=== PATIENT | female | born 1930 | race Hispanic/Latino ===

== ENCOUNTER 2017-12-06 09:45 | Outpatient (CLI) | payer MEDICARE | END 2017-12-06 09:46 | disposition home or self-care (01) | LOC: BICMAMMO 09:45 | PROVIDERS: ATTEND Obstetrics & Gynecology | DX: Z12.31 Encounter for screening mammogram for malignant neoplasm of breast (principal) | CPT/HCPCS: 77063; 77067 ==

== ENCOUNTER 2018-04-09 13:56 | Outpatient (CLI) | payer MEDICARE ==
--- NOTE | 2018-04-09 17:44 | ULT ---
LEFT BREAST ULTRASOUND: Date: 04/09/18 HISTORY: Palpable area noted by patient's physician. Patient does not report a palpable focus. COMPARISON: None. TECHNIQUE: Targeted sonographic imaging of the left breast is performed at 3 o'clock position. Static images are reviewed. FINDINGS: Static images demonstrate normal fibroglandular tissue. No evidence of architectural distortion or sh adowing. No solid or cystic masses. IMPRESSION: BIRADS 2: Benign Finding(s) RECOMMENDATION: Annual mammogram. POS: [facility]
== END 2018-04-09 13:57 | disposition home or self-care (01) ==
LOC: BICMAMMO 13:56
PROVIDERS: ATTEND Internal Medicine
DX: N60.09 Solitary cyst of unspecified breast (principal)
CPT/HCPCS: 76642; 77065; G0279

== ENCOUNTER 2018-08-14 13:53 | Outpatient (CLI) | payer MEDICARE ==
--- NOTE | 2018-08-14 15:00 | RAD ---
PA AND LATERAL OF THE CHEST: INDICATION: History of dyspnea. COMPARISON: Prior exam dated 12/06/2016. FINDINGS: Chronic lung changes and mild cardiomegaly are stable. No consolidation, pleural effusion, or pneumo thorax is evident. No acute osseous abnormality is evident. IMPRESSION: No acute cardiopulmonary abnormality. Stable chronic obstructive pulmonary disease change and mild c ardiomegaly. POS: [facility]
== END 2018-08-14 13:54 | disposition home or self-care (01) ==
LOC: RAD 13:53
PROVIDERS: ATTEND Internal Medicine Critical Care Medicine
DX: R06.00 Dyspnea, unspecified (principal); J44.9 Chronic obstructive pulmonary disease, unspecified; I51.7 Cardiomegaly
CPT/HCPCS: 71046

== ENCOUNTER 2019-03-24 10:46 | Outpatient (CLI) | payer MEDICARE ==
--- NOTE | 2019-03-24 12:30 | RAD ---
2 VIEW CHEST: Date: 03/24/19 HISTORY: Dyspnea. COMPARISON: 08/14/18. FINDINGS: The lungs appear clear. Heart size upper normal. Vasculature upper normal but stable. Osseous struct ures unremarkable. Prominent pulmonary artery segments are again noted, stable. IMPRESSION: No acute process. POS: [facility]
== END 2019-03-24 10:47 | disposition home or self-care (01) ==
LOC: RAD 10:46
PROVIDERS: ATTEND Internal Medicine Critical Care Medicine
DX: R06.00 Dyspnea, unspecified (principal)
CPT/HCPCS: 71046

== ENCOUNTER 2019-05-06 01:40 | Inpatient (IN) | payer MEDICARE ==
[2019-05-06] MEDS ORDERED: predniSONE 20 MG TAB ONE (02:01)
[2019-05-06 02:32] LABS: #Eosinphils 0.3 thou/uL (0.0-0.7); #Lymphocytes 0.7 thou/uL (1.20-3.40); #Neutrophils 5.8 thou/uL (1.40-6.50); %Basophils 0.2 % (0.0-1.0); %Eosinophils 3.6 % (0.0-10.0); %Lymphocytes 8.5 % (21.0-51.0); %Monocytes 12.4 % (0.0-10.0); %Neutrophils 75.3 % (42.0-75.0); Hemoglobin 12.9 g/dL (12.0-16.0); Mean Corpuscular HGB CONC 32.8 g/dL (32.0-36.0); Mean Corpuscular Hemoglobin 33.2 pg (27.0-31.0); Mean Platelet Volume 8.3 fL (7.4-10.4); Platelet Count 186 thou/uL (130-400); RBC Distribution Width 11.7 % (11.5-14.5); Red Blood Cell (RBC) Count 3.88 mill/uL (4.20-5.40); White Blood Cell (WBC) Count 7.7 thou/uL (4.8-10.8)
[2019-05-06] MEDS ORDERED: Albuterol Sulfate 2.5 mg/3 ml Neb ONE (02:38)
[2019-05-06 02:57] LABS: ALT (SGPT) 13 U/L (8-55); AST (SGOT) 20 U/L (5-34); Albumin 3.8 g/dL (3.4-4.8); Alkaline Phosphatase 76 U/L (40-110); Anion Gap 11 mmol/L (10-20); BUN (Urea Nitrogen) 16 mg/dL (9.8-20.1); Bilirubin, Total 0.3 mg/dL (0.2-1.2); Calc. Creatinine Clearance 0 mL/min (70-130); Calcium 9.3 mg/dL (7.8-10.44); Carbon Dioxide 29 mmol/L (23-31); Chloride 104 mmol/L (98-107); Estimated GFR-MDRD 69; Globulin 2.5 g/dL (2.4-3.5); Glucose 105 mg/dL (83-110); Potassium 3.8 mmol/L (3.5-5.1); Protein, Total 6.3 g/dL (6.0-8.3); Sodium 140 mmol/L (136-145)
[2019-05-06] MEDS ORDERED: Acetaminophen 500 MG TAB ONE (03:40)
[2019-05-06] MEDS ORDERED: hydrALAZINE 20 MG/ML VIAL SLOW IVP PRN (04:10)
[2019-05-06 04:59] VITALS: BMI 24.2
[2019-05-06] MEDS ORDERED: Guaifenesin DM 100-10/5 ML UDCUP PO PRN (05:00)
[2019-05-06] MEDS ORDERED: Acetaminophen 325 MG TAB PO PRN (05:00)
--- NOTE | 2019-05-06 05:03 | HP ---
PRESENTING COMPLAINT: Worsening shortness of breath since the last 5 days. HISTORY OF PRESENT ILLNESS: Ms. Martinez is an 89-year-old female with past medical history of hypertension, COPD, follows with Pulmonary, on home O2 p.r.n. but states she rarely uses it, on b.i.d. MDI, presented because of worsening shortness of breath and wheezing since the last 5 days, much worse over the weekend. She stated her symptoms continued to worsen today. She has used the inhaler with no relief. She stated at home, her O2 saturation was in the 80s before starting home O2 today. In the ER, her O2 saturation had improved to 100%. She states she is still wheezing. She was given DuoNeb. Chest x-ray shows no acute infiltrate. The patient is being admitted for COPD exacerbation. She denies any fever or chills. She denies any chest pain. PAST MEDICAL HISTORY: Significant for hypertension, history of TIAs, history of COPD, and history of asthma. PAST SURGICAL HISTORY: Significant for hysterectomy and tonsillectomy. ALLERGIES: SHE IS ALLERGIC TO IODINE. FAMILY HISTORY: Noncontributory. SOCIAL HISTORY: The patient resides in the community with the family. She denies any tobacco use, but former smoker. She admits to 5 drinks per day use. She is not willing to characterize how much she actually drinks or what type of drink she has, to me today. REVIEW OF SYSTEMS: All systems review x14 were negative. HOME MEDICATIONS: Awaiting for medication list, but includes, 1. Verapamil. 2. Ferrous sulfate. 3. Pravachol. 4. Aspirin. 5. Vitamin B12. 6. Vitamin D. 7. Fiber. 8. Pantoprazole. The patient is unsure of what type of inhaler she uses. PHYSICAL EXAMINATION: CURRENT VITAL SIGNS: Blood pressure of 136/78, pulse of 69, O2 saturation 100% on 2 L, still maintaining 100% when O2 reaches to 1 L, afebrile at 97.9, respiratory rate of 23. GENERAL: Elderly female, lying in bed, mildly dyspneic, but on nasal cannula O2. HEENT: Head is atraumatic and normocephalic. Pupils are equal and reactive to light. NECK: No JVD. RESPIRATORY: Good air entry bilaterally with minimal bibasilar crepitations. No appreciable wheezing noted. CARDIOVASCULAR: S1, S2. Rate and rhythm regular. ABDOMEN: Full, soft, nontender. Bowel sounds positive. EXTREMITIES: No calf tenderness. No pedal edema. LABORATORY DATA: WBC 7.6, hemoglobin 13, hematocrit 39, platelets 186, neutrophils 75%. Sodium 140, potassium 3.8. AST and alkaline phosphatase normal. Troponin less than 0.01. Chest x-ray show hyperinflated lung. No acute Infiltrates. ProBNP of 47. IMPRESSION: 1. Chronic obstructive pulmonary disease exacerbation. 2. Hypertension; controlled. PLAN: We will admit patient to medical floor for observation. We will manage the patient for; 1. COPD exacerbation; continue O2 with slow tapering as tolerated. We will do DuoNeb q.6 schedule. We will start the patient on prednisone 40 b.i.d. for now. We will obtain CT of the chest since degree of hypoxia does not seem to correlate with the patient's respiratory findings on examination. We will rule out occult or subtle pneumonia. If CT negative and improving oxygenation, plan for discharge in a.m. 2. Hypertension; continue verapamil. 3. Deep venous thrombosis prophylaxis; subcutaneous Lovenox. 4. Disposition; the patient wishes to be full. 5. Advance directives discussed with the patient and daughter, she wishes to be full code. Total time spent in evaluation of the patient and discussion, greater than 60 minutes. Job ID: [id number]
[2019-05-06] MEDS ORDERED: Bacteriostatic Water 30 ML VIAL FS PRN (05:09)
[2019-05-06] MEDS: cefTRIAXone\\ROCEPHIN 1 GM in Sodium Chloride 0.9% 100 ML IVPB SCH (05:26)
[2019-05-06] MEDS: Sodium Chloride 0.9% 1,000 ML IV SCH (05:26)
[2019-05-06] MEDS: methylPREDNISolone Sod Succ 40 MG VIAL IVP SCH ×4 (05:27→23:43)
[2019-05-06] MEDS: Arformoterol 15 MCG/2 ML NEB NEB SCH ×2 (06:23→19:26)
--- NOTE | 2019-05-06 07:49 | RAD ---
XR Chest 1 View Portable History: Hypoxia Comparison: Radiograph March 24, 2019 Findings: There is a chronic right middle lobe opacity with bronchiectasis. Mild blunting bilateral c ostophrenic sulcus likely due to right middle lobe volume loss. Bilateral rotator cuff arthropathy. Heart size mildly enlarged. Mild ectasia of the aorta with calcif ications. Impression: Chronic findings. No acute intrathoracic abnormality.
[2019-05-06] MEDS ORDERED: predniSONE 20 MG TAB PO SCH (08:00)
[2019-05-06] MEDS: Enoxaparin Sodium 40 MG/0.4 ML SYRINGE SC SCH (08:11)
[2019-05-06] MEDS: Famotidine 20 MG TAB PO SCH (08:11)
--- NOTE | 2019-05-06 08:12 | CT ---
PRELIMINARY REPORT/[facility]/EMERGENCY AFTER HOURS PROCEDURE: PROCEDURE INFORMATION: Exam: CT Chest Without Contrast Exam date and time: 05/06/2019 4:15 AM Clinical history: 89 years old, female; Dyspnea and shortness of breath; Patient HX: Er 2. 89yo femal e with pmh of copd and asthma presents with SOB that started today. Has o2 at home but rarely uses it . Spo2 at home was 80% on ra so she put on o2. Follows with Dr puente. Has been compliant with medications. Endorses increase sputum production with change in color to tyson and wheezing. TECHNIQUE: Imaging protocol: Computed tomography of the chest without contrast. COMPARISON: No relevant prior studies available. FINDINGS: Lungs: No consolidation. No masses. Pleural space: No pneumothorax. No pleural effusion. Heart: No cardiomegaly. No pericardial effusion. Aorta: No aortic aneurysm. Lymph nodes: Carotid arteries calcifications are moderate. Mitral valve calcifications are moderate. No enlarged lymph nodes. Bones/joints: Advanced degenerative changes in the thoracic spine. No acute fracture. Soft tissues: Unremarkable. IMPRESSION: No consolidation to suspect pneumonia. Thank you for allowing us to participate in the care of your patient. Dictated and Authenticated by: Basia Anglin MD 05/06/2019 4:37 AM Central Time ([place] & [place]) FINAL REPORT CHEST CT WITHOUT CONTRAT: HISTORY: Hypoxia. COMPARISON: None. FINDINGS/IMPRESSION: This report is in agreement with the preliminary report by Steven. Limited evaluation of the mediastinu m. No mediastinal abnormalities. Atherosclerosis of aorta. Coronary artery calcifications. Calcificat ion mitral annulus. Upper solid organs are unremarkable. Left parapelvic cysts are suspected. Emphysematous changes. No masses or consolidation. No pleural effusion or pneumothorax. Minimal scar and atelectasis is noted. POS: [facility]
--- NOTE | 2019-05-06 16:29 | CON ---
DATE OF CONSULTATION: 05/06/2019 This encompassed 50 minutes of time, of that time, greater than 50% was spent with the patient and/or the patient's unit in the hospital. REASON FOR CONSULTATION: Shortness of breath. HISTORY OF PRESENT ILLNESS: The patient is an 89-year-old whom I have known for a number of years. She has COPD and infrequently comes to the office with exacerbation of symptoms. Over the weekend, she developed low-grade fever, productive phlegm, and hypoxemia. She was brought to the emergency room by her family. She was subsequently admitted. She says she feels better now and is wondering when she can go home. PAST MEDICAL HISTORY: 1. COPD/asthma. 2. Hypertension. 3. Transient ischemic attack. PAST SURGICAL HISTORY: 1. Hysterectomy. 2. Tonsillectomy. ALLERGIES: IODINE. FAMILY MEDICAL HISTORY: Unremarkable. SOCIAL HISTORY: Former smoker, quit some time ago. Drinks one drink per day. REVIEW OF SYSTEMS: Twelve-point review of systems is otherwise negative. MEDICATIONS: Prior to admission; 1. Verapamil. 2. Iron sulfate. 3. Pravachol. 4. Aspirin. 5. Vitamin B12. 6. Vitamin D. 7. Pantoprazole. 8. I believe she is on Symbicort. 9. ProAir. PHYSICAL EXAMINATION: VITAL SIGNS: Temperature of 98.0, pulse 91, respirations 20, O2 saturation 97%, and blood pressure 158/77. GENERAL: She is awake, alert, in no distress. HEENT: Unremarkable. NECK: No adenopathy, JVD, or bruits. LUNGS: She has coarse breath sounds on the right side, fairly clear on the left. CARDIAC: S1 and S2. Regular. ABDOMEN: Soft, nontender, and nondistended. EXTREMITIES: No clubbing, cyanosis, or edema. LABORATORY DATA: White blood cell count 7.7, hematocrit 39.2, and platelet count 186. Sodium 140, potassium 3.8, chloride 104, CO2 of 29, BUN 16, creatinine 0.7, and glucose 105. IMAGING: Her chest x-ray and CT scan show no infiltrates. ASSESSMENT: Chronic obstructive pulmonary disease with exacerbation. RECOMMENDATIONS: The current treatment with antibiotics, steroids, and nebulization therapy is perfect. She does not need both IV Solu-Medrol and prednisone, so I will stop the oral prednisone for the time being. It would be anticipated that she can go home in a day or two. Job ID: [id number]
[2019-05-06] MEDS ORDERED: hydrALAZINE 10 MG TAB PO SCH (21:00)
[2019-05-06] MEDS ORDERED: Ferrous Sulfate 325 MG TAB PO SCH (23:15)
[2019-05-06] MEDS ORDERED: Docusate 100 MG CAP PO SCH (23:45)
[2019-05-07] MEDS ORDERED: Melatonin 3 MG TAB PO PRN (00:04)
[2019-05-07] MEDS ORDERED: Simvastatin 5 MG TAB PO SCH (00:15)
[2019-05-07] MEDS: Melatonin 3 MG TAB PO SCH ×2 (00:17→02:42)
[2019-05-07] MEDS: Cepastat Lozenges 1 LOZ PO PRN ×2 (00:17→19:41)
[2019-05-07] MEDS: HYDROcodone/Acetaminophen 5/325 mg Tablet PO PRN (01:11)
[2019-05-07] MEDS: Labetalol HCl 100 MG/20 ML VIAL SLOW IVP PRN (01:24)
[2019-05-07] MEDS ORDERED: Furosemide 40 MG/4 ML VIAL SLOW IVP SCH (01:30)
[2019-05-07] MEDS ORDERED: ALPRAZolam 0.5 MG TAB PO SCH ×2 (01:30→22:30)
[2019-05-07] MEDS: Sodium Chloride 0.9% 1,000 ML IV SCH ×2 (01:47→17:02)
[2019-05-07 02:00] LABS: Troponin I Less than 0.010 ng/mL (< 0.028)
[2019-05-07] MEDS: cefTRIAXone\\ROCEPHIN 1 GM in Sodium Chloride 0.9% 100 ML IVPB SCH (04:17)
[2019-05-07] MEDS: methylPREDNISolone Sod Succ 40 MG VIAL IVP SCH ×3 (05:13→17:48)
[2019-05-07 06:20] LABS: Band 6 % (5-11); Hemoglobin 12.2 g/dL (12.0-16.0); Lymphocytes 1 % (21-51); MDiff Complete? YES; Mean Corpuscular HGB CONC 33.5 g/dL (32.0-36.0); Mean Corpuscular Hemoglobin 33.8 pg (27.0-31.0); Mean Platelet Volume 8.5 fL (7.4-10.4); Monocytes 3 % (0-10); Neutrophil 90 % (42-75); Platelet Count 185 thou/uL (130-400); Platelet Morphology Comment Appears Adequate; RBC Distribution Width 11.6 % (11.5-14.5); RBC Morphology Normal; Red Blood Cell (RBC) Count 3.61 mill/uL (4.20-5.40); White Blood Cell (WBC) Count 11.3 thou/uL (4.8-10.8)
[2019-05-07 06:23] LABS: Anion Gap 12 mmol/L (10-20); BUN (Urea Nitrogen) 16 mg/dL (9.8-20.1); Calc. Creatinine Clearance 51 mL/min (70-130); Calcium 8.9 mg/dL (7.8-10.44); Carbon Dioxide 28 mmol/L (23-31); Chloride 102 mmol/L (98-107); Estimated GFR-MDRD 82; Glucose 133 mg/dL (83-110); Potassium 3.8 mmol/L (3.5-5.1); Sodium 138 mmol/L (136-145)
[2019-05-07 06:29] LABS: Troponin I Less than 0.010 ng/mL (< 0.028)
[2019-05-07] MEDS: Arformoterol 15 MCG/2 ML NEB NEB SCH ×2 (07:45→18:22)
[2019-05-07] MEDS: Polyethylene Glycol 3350 17 GM Packet PO SCH (08:58)
[2019-05-07] MEDS: Famotidine 20 MG TAB PO SCH (08:59)
[2019-05-07] MEDS: Enoxaparin Sodium 40 MG/0.4 ML SYRINGE SC SCH (09:00)
[2019-05-07] MEDS: Ferrous Sulfate 325 MG TAB PO SCH ×2 (09:00→20:40)
[2019-05-07] MEDS ORDERED: Docusate 100 MG CAP PO SCH (09:00)
--- NOTE | 2019-05-07 09:33 | PRG ---
DATE OF SERVICE: 05/07/2019 SUBJECTIVE: The patient had problems with chest pain last night and apparently required some [place] to relieve that pain. She feels short of breath this morning. OBJECTIVE: VITAL SIGNS: Temperature 97.6, pulse 99, respirations 22, O2 saturation 93% on 2 L, blood pressure 163/84. HEENT: Unremarkable. NECK: No adenopathy or JVD. LUNGS: Diffuse mild intermittent wheezing. CARDIAC: S1, S2. Regular. ABDOMEN: Soft. EXTREMITIES: No edema. LABORATORY DATA: White blood cell count 11.3, hematocrit 36.3, platelet count 185. Sodium 138, potassium 3.8, chloride 102, CO2 of 28, BUN 16, creatinine 0.7, glucose 133. ASSESSMENT: 1. Chronic obstructive pulmonary disease with exacerbation. 2. Costochondritis. 3. Advanced age. PLAN: Continue the IV steroids, nebulization treatment, and antibiotics. Job ID: [id number]
[2019-05-07] MEDS ORDERED: hydrALAZINE 10 MG TAB PO SCH (13:15)
--- NOTE | 2019-05-07 18:18 | PDOC.HOSPP ---
- Subjective Encounter Date: 05/07/19 Encounter Time: 10:20 Subjective: Pt seen for followup re: acute on chronic hypoxic respiratory failure. Feels better at this time, but had chest discomfort last night, relieved with pain medication. - Objective Vital Signs & Weight: Vital Signs (12 hours) Temp Pulse Resp BP BP Pulse Ox 05/07/19 16:00 98.4 F 92 22 H 145/76 H 92 L 05/07/19 14:14 88 22 H 05/07/19 13:15 91 151/79 H 05/07/19 11:32 97.8 F 91 20 150/76 H 94 L 05/07/19 08:00 97.6 F 99 22 H 163/84 H 94 L 05/07/19 07:43 92 22 H Weight Admit Weight 123 lb Weight 123 lb 14.4 oz I&O: 05/06/19 05/07/19 05/08/19 06:59 06:59 06:59 Intake Total 780 Output Total 500 Balance 280 Result Diagrams: 05/07/19 05:27 05/07/19 05:27 Additional Labs: Labs and MARs reviewed by ct Hospitalist ROS - Review of Systems Constitutional: denies: fever, chills, sweats, weakness, malaise Respiratory: reports: cough, dry, SOB with excertion. denies: shortness of breath, hemoptysis, pleuritic pain, sputum, wheezing - Medication Medications: Active Medications Generic Name Dose Route Start Last Admin Trade Name Freq PRN Reason Stop Dose Admin Acetaminophen 650 mg 05/06/19 05:00 05/07/19 00:02 Tylenol PO 650 mg Q4H PRN Administration Headache/Fever/Mild Pain (1-3) Hydrocodone Bitart/Acetaminophen 1 tab 05/06/19 05:00 05/07/19 01:11 [place] 5/325 PO 1 tab Q4H PRN Administration Moderate Pain (4-6) Albuterol/Ipratropium 3 ml 05/06/19 07:00 05/07/19 14:14 Duoneb NEB 3 ml [id number] SARAH Administration Arformoterol Tartrate 15 mcg 05/06/19 06:30 05/07/19 07:45 Brovana NEB 15 mcg BID-RT SARAH Administration Cholecalciferol 1,000 units 05/07/19 09:00 05/07/19 08:59 Vitamin D3 PO 1,000 units DAILY SARAH Administration Enoxaparin Sodium 40 mg 05/06/19 09:00 05/07/19 09:00 Lovenox SC 40 mg 0900 SARAH Administration Famotidine 20 mg 05/06/19 09:00 05/07/19 08:59 Pepcid PO 20 mg DAILY SARAH Administration Ferrous Sulfate 325 mg 05/07/19 09:00 05/07/19 09:00 Feosol PO 325 mg BID SARAH Administration Ferrous Sulfate 325 mg 05/06/19 23:15 05/06/19 23:43 Feosol PO 05/07/19 23:16 325 mg NOW SARAH Administration Guaifenesin/Dextromethorphan 15 ml 05/06/19 05:00 05/07/19 00:01 Robitussin Dm PO 15 ml Q4H PRN Administration Cough Ceftriaxone Sodium 1 gm/ 100 mls @ 200 mls/hr 05/06/19 05:00 05/07/19 04:17 Sodium Chloride IVPB 100 mls Q24HR SARAH Administration Sodium Chloride 1,000 mls @ 50 mls/hr 05/06/19 05:00 05/07/19 17:02 Normal Saline 0.9% IV 1,000 mls .Q20H SARAH Administration Labetalol HCl 20 mg 05/07/19 01:18 05/07/19 01:24 Normodyne SLOW IVP 20 mg Q8H PRN Administration SBP GREATER THAN 160 Methylprednisolone Sodium Succinate 40 mg 05/06/19 06:00 05/07/19 17:48 Solu-Medrol IVP 40 mg Q6HR SARAH Administration Polyethylene Glycol 17 gm 05/07/19 09:00 05/07/19 08:58 Miralax PO 17 gm DAILY SARAH Administration Sodium Chloride 10 ml 05/06/19 21:00 05/07/19 09:00 Flush - Normal Saline IVF 10 ml Q12HR SARAH Administration Throat Lozenges 1 patricia 05/06/19 23:07 05/07/19 00:17 Cepastat Lozenges PO 1 patricia Q2H PRN Administration Sore Throat - Exam General Appearance: NAD Eye: anicteric sclera ENT: moist mucosa Neck: supple Heart: RRR Respiratory: wheezes Gastrointestinal: soft, non-tender Extremities: no clubbing Psychiatric: normal affect, normal behavior Hosp A/P (1) Acute on chronic respiratory failure with hypoxia Code(s): J96.21 - ACUTE AND CHRONIC RESPIRATORY FAILURE WITH HYPOXIA Status: Acute (2) COPD exacerbation Code(s): J44.1 - CHRONIC OBSTRUCTIVE PULMONARY DISEASE W (ACUTE) EXACERBATION Status: Acute (3) Hx TIA/stroke w/o resid Code(s): Z86.73 - PRSNL HX OF TIA (TIA), AND CEREB INFRC W/O RESID DEFICITS Status: Chronic (4) Costochondritis Code(s): M94.0 - CHONDROCOSTAL JUNCTION SYNDROME [TIETZE] Status: Resolved - Plan continue antibiotics, respiratory therapy, out of bed/ambulate Continue oxygen, steroids, bronchodilators and antibiotics. Continue aspirin and statin for h/o TIAs.
[2019-05-07] MEDS: hydrALAZINE 10 MG TAB PO SCH (20:37)
[2019-05-07] MEDS: Simvastatin 5 MG TAB PO SCH (20:38)
[2019-05-07] MEDS: Docusate 100 MG CAP PO SCH (20:38)
[2019-05-08] MEDS: methylPREDNISolone Sod Succ 40 MG VIAL IVP SCH ×4 (01:07→17:28)
[2019-05-08] MEDS: cefTRIAXone\\ROCEPHIN 1 GM in Sodium Chloride 0.9% 100 ML IVPB SCH (05:05)
[2019-05-08] MEDS: Ferrous Sulfate 325 MG TAB PO SCH ×2 (08:10→20:15)
[2019-05-08] MEDS: Famotidine 20 MG TAB PO SCH (08:10)
[2019-05-08] MEDS: Docusate 100 MG CAP PO SCH ×2 (08:10→20:16)
[2019-05-08] MEDS: Polyethylene Glycol 3350 17 GM Packet PO SCH (08:11)
[2019-05-08] MEDS: hydrALAZINE 10 MG TAB PO SCH ×2 (08:12→20:17)
[2019-05-08] MEDS: Enoxaparin Sodium 40 MG/0.4 ML SYRINGE SC SCH (08:13)
[2019-05-08] MEDS: Arformoterol 15 MCG/2 ML NEB NEB SCH ×2 (08:22→18:05)
--- NOTE | 2019-05-08 08:50 | PRG ---
DATE OF SERVICE: 05/08/2019 SUBJECTIVE: She continues to struggle with bronchitic symptoms. OBJECTIVE: VITAL SIGNS: Temperature is 97.7, pulse 80, respirations 20, O2 saturation 93% on 2 L, and blood pressure 171/74. HEENT: Unremarkable. NECK: She has upper airway noises radiating down to her lungs. LUNGS: Coarse rhonchi. CARDIAC: S1, S2. Regular. ABDOMEN: Soft. EXTREMITIES: No edema. LABORATORY DATA: No new labs were done today. ASSESSMENT: Chronic obstructive pulmonary disease/bronchitis with exacerbation. PLAN: It is going to take some time for her to improve. I would continue with the steroids, nebulization therapy, and antibiotics. Job ID: [id number]
--- NOTE | 2019-05-08 11:47 | PDOC.HOSPP ---
- Subjective Encounter Date: 05/08/19 Encounter Time: 09:40 Subjective: Pt seen for followup re: acute on chronic hypoxic respiratory failure. Feels better now, had difficulty breathing earlier. - Objective Vital Signs & Weight: Vital Signs (12 hours) Temp Pulse Resp BP BP BP Pulse Ox 05/08/19 11:02 95 16 96 05/08/19 08:24 92 22 H 92 L 05/08/19 08:22 92 22 H 92 L 05/08/19 08:12 88 171/74 H 05/08/19 08:00 97.7 F 80 20 171/74 H 94 L 05/08/19 04:05 97.6 F 82 14 151/77 H 94 L 05/08/19 00:37 97.4 F L 99 18 150/75 H 96 05/08/19 00:00 97.4 F L 99 20 163/81 H 96 Weight Admit Weight 123 lb Weight 123 lb 14.4 oz I&O: 05/07/19 05/08/19 05/09/19 06:59 06:59 06:59 Intake Total 780 850 Output Total 500 Balance 280 850 Result Diagrams: 05/07/19 05:27 05/07/19 05:27 Additional Labs: Labs and MARs reviewed by ct Hospitalist ROS - Review of Systems Respiratory: reports: cough, SOB with excertion Cardiovascular: denies: chest pain, palpitations, orthopnea, paroxysmal noc. dyspnea, edema, light headedness - Medication Medications: Active Medications Generic Name Dose Route Start Last Admin Trade Name Freq PRN Reason Stop Dose Admin Acetaminophen 650 mg 05/06/19 05:00 05/07/19 00:02 Tylenol PO 650 mg Q4H PRN Administration Headache/Fever/Mild Pain (1-3) Hydrocodone Bitart/Acetaminophen 1 tab 05/06/19 05:00 05/07/19 01:11 [place] 5/325 PO 1 tab Q4H PRN Administration Moderate Pain (4-6) Albuterol/Ipratropium 3 ml 05/08/19 10:30 05/08/19 11:02 Duoneb EZPAP 3 ml [id number] SARAH Administration Arformoterol Tartrate 15 mcg 05/06/19 06:30 05/08/19 08:22 Brovana NEB 15 mcg BID-RT SARAH Administration Cholecalciferol 1,000 units 05/07/19 09:00 05/08/19 08:10 Vitamin D3 PO 1,000 units DAILY SARAH Administration Docusate Sodium 100 mg 05/07/19 21:00 05/08/19 08:10 Colace PO 100 mg BID SARAH Administration Enoxaparin Sodium 40 mg 05/06/19 09:00 05/08/19 08:13 Lovenox SC 40 mg 0900 SARAH Administration Famotidine 20 mg 05/06/19 09:00 05/08/19 08:10 Pepcid PO 20 mg DAILY SARAH Administration Ferrous Sulfate 325 mg 05/07/19 09:00 05/08/19 08:10 Feosol PO 325 mg BID SARAH Administration Guaifenesin/Dextromethorphan 15 ml 05/06/19 05:00 05/07/19 00:01 Robitussin Dm PO 15 ml Q4H PRN Administration Cough Hydralazine HCl 40 mg 05/07/19 21:00 05/08/19 08:12 Apresoline PO 40 mg BID SARAH Administration Ceftriaxone Sodium 1 gm/ 100 mls @ 200 mls/hr 05/06/19 05:00 05/08/19 05:05 Sodium Chloride IVPB 100 mls Q24HR SARAH Administration Sodium Chloride 1,000 mls @ 50 mls/hr 05/06/19 05:00 05/07/19 17:02 Normal Saline 0.9% IV 1,000 mls .Q20H SARAH Administration Labetalol HCl 20 mg 05/07/19 01:18 05/07/19 01:24 Normodyne SLOW IVP 20 mg Q8H PRN Administration SBP GREATER THAN 160 Methylprednisolone Sodium Succinate 40 mg 05/06/19 06:00 05/08/19 11:36 Solu-Medrol IVP 40 mg Q6HR SARAH Administration Polyethylene Glycol 17 gm 05/07/19 09:00 05/08/19 08:11 Miralax PO 17 gm DAILY SARAH Administration Simvastatin 10 mg 05/07/19 21:00 05/07/19 20:38 Zocor PO 10 mg HS SARAH Administration Sodium Chloride 10 ml 05/06/19 21:00 05/08/19 08:28 Flush - Normal Saline IVF 10 ml Q12HR SARAH Administration Throat Lozenges 1 patricia 05/06/19 23:07 05/07/19 19:41 Cepastat Lozenges PO 1 patricia Q2H PRN Administration Sore Throat Verapamil HCl 240 mg 05/07/19 21:00 05/08/19 08:28 Calan Sr PO 240 mg BID SARAH Administration - Exam General Appearance: NAD Eye: anicteric sclera ENT: no oropharyngeal lesions, moist mucosa Neck: supple, no thyromegaly Heart: RRR Respiratory: CTAB Respiratory - other findings: Biminished air entry at bases Extremities: no clubbing Neurological: no weakness Psychiatric: normal affect, normal behavior Hosp A/P (1) Acute on chronic respiratory failure with hypoxia Code(s): J96.21 - ACUTE AND CHRONIC RESPIRATORY FAILURE WITH HYPOXIA Status: Acute (2) COPD exacerbation Code(s): J44.1 - CHRONIC OBSTRUCTIVE PULMONARY DISEASE W (ACUTE) EXACERBATION Status: Acute (3) Hx TIA/stroke w/o resid Code(s): Z86.73 - PRSNL HX OF TIA (TIA), AND CEREB INFRC W/O RESID DEFICITS Status: Chronic (4) Costochondritis Code(s): M94.0 - CHONDROCOSTAL JUNCTION SYNDROME [TIETZE] Status: Resolved - Plan continue antibiotics, respiratory therapy, out of bed/ambulate Pt slowly improving with oxygen, steroids, bronchodilators and antibiotics. Continue aspirin and statin.
[2019-05-08] MEDS: Labetalol HCl 100 MG/20 ML VIAL SLOW IVP PRN (17:26)
[2019-05-08] MEDS: Bisacodyl 10 MG SUPP PR PRN (17:26)
[2019-05-08] MEDS: Cepastat Lozenges 1 LOZ PO PRN ×2 (19:25→22:45)
[2019-05-08] MEDS: ALPRAZolam 0.5 MG TAB PO SCH (20:16)
[2019-05-08] MEDS: Simvastatin 5 MG TAB PO SCH (20:16)
--- NOTE | 2019-05-08 20:19 | RAD ---
EXAM: Chest one view: HISTORY: Tachypnea COMPARISON: 05/06/2019 FINDINGS: Minimal stable increased markings bilaterally. Heart size: Within normal limits. Lungs: Clear of acute process. No evidence for confluent pneumonia, pleural effusion, acute edema, or pneumothorax, or other signifi cant acute process. IMPRESSION: No significant acute intrathoracic disease. Atherosclerosis of the aorta with ectasia. Stable exam.
[2019-05-08 20:34] LABS: #Eosinphils 0.1 thou/uL (0.0-0.7); #Lymphocytes 0.5 thou/uL (1.20-3.40); #Monocytes 0.6 thou/uL (0.11-0.59); #Neutrophils 12.8 thou/uL (1.40-6.50); %Eosinophils 0.7 % (0.0-10.0); %Lymphocytes 3.3 % (21.0-51.0); %Monocytes 4.5 % (0.0-10.0); %Neutrophils 91.4 % (42.0-75.0); Hemoglobin 12.7 g/dL (12.0-16.0); Mean Corpuscular HGB CONC 32.2 g/dL (32.0-36.0); Mean Corpuscular Hemoglobin 32.9 pg (27.0-31.0); Mean Platelet Volume 8.1 fL (7.4-10.4); Platelet Count 205 thou/uL (130-400); RBC Distribution Width 11.7 % (11.5-14.5); Red Blood Cell (RBC) Count 3.85 mill/uL (4.20-5.40)
[2019-05-08 20:46] LABS: Lactic Acid 2.1 mmol/L (0.5-2.2)
[2019-05-08 20:50] LABS: Anion Gap 10 mmol/L (10-20); BUN (Urea Nitrogen) 21 mg/dL (9.8-20.1); Calc. Creatinine Clearance 49 mL/min (70-130); Carbon Dioxide 30 mmol/L (23-31); Chloride 106 mmol/L (98-107); Estimated GFR-MDRD 78; Glucose 108 mg/dL (83-110); Magnesium 2.4 mg/dL (1.6-2.6); Potassium 4.2 mmol/L (3.5-5.1); Sodium 142 mmol/L (136-145)
[2019-05-09] MEDS: methylPREDNISolone Sod Succ 40 MG VIAL IVP SCH ×5 (00:06→20:47)
[2019-05-09] MEDS: Sodium Chloride 0.9% 1,000 ML IV SCH (00:07)
[2019-05-09] MEDS: cefTRIAXone\\ROCEPHIN 1 GM in Sodium Chloride 0.9% 100 ML IVPB SCH (05:35)
[2019-05-09 06:06] LABS: #Eosinphils 0.1 thou/uL (0.0-0.7); #Lymphocytes 0.5 thou/uL (1.20-3.40); #Monocytes 0.5 thou/uL (0.11-0.59); #Neutrophils 12.2 thou/uL (1.40-6.50); %Basophils 0.1 % (0.0-1.0); %Eosinophils 0.4 % (0.0-10.0); %Monocytes 3.7 % (0.0-10.0); %Neutrophils 91.8 % (42.0-75.0); Hemoglobin 12.6 g/dL (12.0-16.0); Mean Corpuscular HGB CONC 32.3 g/dL (32.0-36.0); Mean Corpuscular Hemoglobin 33.1 pg (27.0-31.0); Mean Platelet Volume 8.2 fL (7.4-10.4); Platelet Count 202 thou/uL (130-400); RBC Distribution Width 11.7 % (11.5-14.5); Red Blood Cell (RBC) Count 3.81 mill/uL (4.20-5.40); White Blood Cell (WBC) Count 13.3 thou/uL (4.8-10.8)
[2019-05-09] MEDS: Arformoterol 15 MCG/2 ML NEB NEB SCH ×2 (06:22→19:20)
[2019-05-09 06:26] LABS: Anion Gap 10 mmol/L (10-20); BUN (Urea Nitrogen) 23 mg/dL (9.8-20.1); Calc. Creatinine Clearance 51 mL/min (70-130); Carbon Dioxide 30 mmol/L (23-31); Chloride 104 mmol/L (98-107); Estimated GFR-MDRD 82; Glucose 135 mg/dL (83-110); Sodium 140 mmol/L (136-145)
[2019-05-09] MEDS: hydrALAZINE 10 MG TAB PO SCH (08:23)
[2019-05-09] MEDS: Ferrous Sulfate 325 MG TAB PO SCH ×2 (08:24→20:55)
[2019-05-09] MEDS: Famotidine 20 MG TAB PO SCH (08:24)
[2019-05-09] MEDS: Docusate 100 MG CAP PO SCH ×2 (08:24→20:46)
[2019-05-09] MEDS: Cepastat Lozenges 1 LOZ PO PRN ×2 (08:24→13:09)
[2019-05-09] MEDS: Enoxaparin Sodium 40 MG/0.4 ML SYRINGE SC SCH (08:25)
--- NOTE | 2019-05-09 08:48 | PRG ---
DATE OF SERVICE: 05/09/2019 SUBJECTIVE: The patient is still fairly miserable from her wheezing and congestion. She says her mouth is becoming too dry with current breathing treatments and she also feels like her heart is racing. OBJECTIVE: VITAL SIGNS: Her temperature is 97.6, pulse 83, respirations 17, O2 saturation 97%, and blood pressure 163/84. HEENT: Unremarkable. NECK: No adenopathy or JVD. LUNGS: Actually much clear than yesterday. CARDIAC: S1 and S2 regular. ABDOMEN: Soft. EXTREMITIES: No edema. ASSESSMENT: Chronic obstructive pulmonary disease with exacerbation. PLAN: I will go ahead and switch her DuoNeb to Xopenex to see if this will have less effect on her heart. I will discontinue the anticholinergic to see if this will help her with the dryness. I will add some nasal saline spray. Additionally, I will start her on Singulair. She is not ready to go home yet. Job ID: [id number]
[2019-05-09] MEDS: Polyethylene Glycol 3350 17 GM Packet PO SCH (09:38)
[2019-05-09] MEDS: Labetalol HCl 100 MG/20 ML VIAL SLOW IVP PRN (10:06)
[2019-05-09] MEDS ORDERED: Enalaprilat Dihydrate 1.25 MG/ML VIAL SLOW IVP PRN (12:47)
[2019-05-09] MEDS ORDERED: hydrALAZINE 25 MG TAB PO SCH (13:00)
[2019-05-09] MEDS: Sodium Chloride 0.65% Nasal 44 ML BOT EA NARE SCH ×3 (13:08→21:06)
[2019-05-09] MEDS: Bisacodyl 10 MG SUPP PR PRN (15:34)
[2019-05-09] MEDS: Levalbuterol HCl 0.63 MG/3 ML NEB NEB SCH ×3 (16:27→23:18)
--- NOTE | 2019-05-09 18:00 | PDOC.HOSPP ---
- Subjective Encounter Date: 05/09/19 Subjective: Pt seen for followup re: acute on chronic hypoxic espiratory failure. Feels slightly better. - Objective Vital Signs & Weight: Vital Signs (12 hours) Temp Pulse Resp BP BP Pulse Ox 05/09/19 16:27 78 16 05/09/19 16:12 97.8 F 78 19 158/74 H 95 05/09/19 13:07 69 170/72 H 05/09/19 12:02 98 F 69 16 170/72 H 97 05/09/19 10:06 83 178/84 H 05/09/19 08:23 83 163/84 H 05/09/19 08:00 94 L 05/09/19 07:55 97.6 F 83 17 163/84 H 97 05/09/19 06:26 100 05/09/19 06:22 83 20 Weight Admit Weight 123 lb Weight 123 lb 14.4 oz I&O: 05/08/19 05/09/19 05/10/19 06:59 06:59 06:59 Intake Total 850 Balance 850 Result Diagrams: 05/09/19 05:41 05/09/19 05:41 Additional Labs: Labs and MARs reviewed by ne Hospitalist ROS - Review of Systems Cardiovascular: denies: chest pain, palpitations, orthopnea, paroxysmal noc. dyspnea, edema, light headedness Gastrointestinal: denies: nausea, vomiting, abdominal pain, diarrhea, constipation, melena, hematochezia - Medication Medications: Active Medications Generic Name Dose Route Start Last Admin Trade Name Freq PRN Reason Stop Dose Admin Acetaminophen 650 mg 05/06/19 05:00 05/07/19 00:02 Tylenol PO 650 mg Q4H PRN Administration Headache/Fever/Mild Pain (1-3) Hydrocodone Bitart/Acetaminophen 1 tab 05/06/19 05:00 05/07/19 01:11 [place] 5/325 PO 1 tab Q4H PRN Administration Moderate Pain (4-6) Alprazolam 0.5 mg 05/08/19 21:00 05/08/19 20:16 Xanax PO 0.5 mg HS SARAH Administration Arformoterol Tartrate 15 mcg 05/06/19 06:30 05/09/19 06:22 Brovana NEB 15 mcg BID-RT SARAH Administration Bisacodyl 10 mg 05/06/19 05:00 05/09/19 15:34 Dulcolax [place] 10 mg DAILYPRN PRN Administration Constipation Cholecalciferol 1,000 units 05/07/19 09:00 05/09/19 08:24 Vitamin D3 PO 1,000 units DAILY SARAH Administration Docusate Sodium 100 mg 05/07/19 21:00 05/09/19 08:24 Colace PO 100 mg BID SARAH Administration Enoxaparin Sodium 40 mg 05/06/19 09:00 05/09/19 08:25 Lovenox SC 40 mg 0900 SARAH Administration Famotidine 20 mg 05/06/19 09:00 05/09/19 08:24 Pepcid PO 20 mg DAILY SARAH Administration Ferrous Sulfate 325 mg 05/07/19 09:00 05/09/19 08:24 Feosol PO 325 mg BID SARAH Administration Guaifenesin/Dextromethorphan 15 ml 05/06/19 05:00 05/07/19 00:01 Robitussin Dm PO 15 ml Q4H PRN Administration Cough Ceftriaxone Sodium 1 gm/ 100 mls @ 200 mls/hr 05/06/19 05:00 05/09/19 05:35 Sodium Chloride IVPB 100 mls Q24HR SARAH Administration Labetalol HCl 20 mg 05/07/19 01:18 05/09/19 10:06 Normodyne SLOW IVP 20 mg Q8H PRN Administration SBP GREATER THAN 160 Levalbuterol HCl 0.63 mg 05/09/19 13:00 05/09/19 16:27 Xopenex NEB 0.63 mg [id number] SARAH Administration Methylprednisolone Sodium Succinate 20 mg 05/09/19 09:00 05/09/19 15:24 Solu-Medrol IVP 20 mg Q6H SARAH Administration Polyethylene Glycol 17 gm 05/07/19 09:00 05/09/19 09:38 Miralax PO Not Given DAILY SARAH Simvastatin 10 mg 05/07/19 21:00 05/08/19 20:16 Zocor PO 10 mg HS SARAH Administration Sodium Chloride 10 ml 05/06/19 21:00 05/09/19 13:08 Flush - Normal Saline IVF 10 ml Q12HR SARAH Administration Sodium Chloride 2 ml 05/09/19 09:00 05/09/19 17:32 [place] Nasal [place] 0.65% EA NARE Not Given TID [facility] Throat Lozenges 1 patricia 05/06/19 23:07 05/09/19 13:09 Cepastat Lozenges PO 1 patricia Q2H PRN Administration Sore Throat Verapamil HCl 240 mg 05/07/19 21:00 05/09/19 08:32 Calan Sr PO 240 mg BID SARAH Administration - Exam General Appearance: NAD Eye: anicteric sclera ENT: moist mucosa Neck: supple Heart: RRR Respiratory: CTAB Gastrointestinal: soft, non-tender Extremities: no clubbing Psychiatric: normal affect, normal behavior Hosp A/P (1) Acute on chronic respiratory failure with hypoxia Code(s): J96.21 - ACUTE AND CHRONIC RESPIRATORY FAILURE WITH HYPOXIA Status: Acute (2) COPD exacerbation Code(s): J44.1 - CHRONIC OBSTRUCTIVE PULMONARY DISEASE W (ACUTE) EXACERBATION Status: Acute (3) Hx TIA/stroke w/o resid Code(s): Z86.73 - PRSNL HX OF TIA (TIA), AND CEREB INFRC W/O RESID DEFICITS Status: Chronic (4) Costochondritis Code(s): M94.0 - CHONDROCOSTAL JUNCTION SYNDROME [TIETZE] Status: Resolved - Plan continue antibiotics, out of bed/ambulate Pt slowly improving. Continue oxygen, steroids, bronchodilators and antibiotics. Pt is on aspirin and statin.
[2019-05-09] MEDS: hydrALAZINE 25 MG TAB PO SCH (20:46)
[2019-05-09] MEDS: ALPRAZolam 0.5 MG TAB PO SCH (20:46)
[2019-05-09] MEDS: Montelukast Sodium 10 mg Tablet PO SCH (20:47)
[2019-05-09] MEDS: Simvastatin 5 MG TAB PO SCH (20:47)
[2019-05-10] MEDS: Benzonatate 100 MG CAP PO PRN (02:59)
[2019-05-10] MEDS: methylPREDNISolone Sod Succ 40 MG VIAL IVP SCH ×4 (03:25→21:02)
[2019-05-10] MEDS: cefTRIAXone\\ROCEPHIN 1 GM in Sodium Chloride 0.9% 100 ML IVPB SCH (05:24)
[2019-05-10] MEDS: Levalbuterol HCl 0.63 MG/3 ML NEB NEB SCH ×4 (07:17→23:18)
[2019-05-10] MEDS: Arformoterol 15 MCG/2 ML NEB NEB SCH ×2 (07:17→19:34)
[2019-05-10 07:18] LABS: #Eosinphils 0.1 thou/uL (0.0-0.7); #Lymphocytes 0.5 thou/uL (1.20-3.40); #Monocytes 0.7 thou/uL (0.11-0.59); #Neutrophils 10.9 thou/uL (1.40-6.50); %Eosinophils 0.5 % (0.0-10.0); %Lymphocytes 4.5 % (21.0-51.0); %Monocytes 5.5 % (0.0-10.0); %Neutrophils 89.6 % (42.0-75.0); Mean Corpuscular HGB CONC 32.6 g/dL (32.0-36.0); Mean Corpuscular Hemoglobin 33.3 pg (27.0-31.0); Mean Platelet Volume 8.5 fL (7.4-10.4); Platelet Count 211 thou/uL (130-400); RBC Distribution Width 11.6 % (11.5-14.5); Red Blood Cell (RBC) Count 3.61 mill/uL (4.20-5.40); White Blood Cell (WBC) Count 12.2 thou/uL (4.8-10.8)
[2019-05-10 07:40] LABS: Anion Gap 10 mmol/L (10-20); BUN (Urea Nitrogen) 30 mg/dL (9.8-20.1); Calc. Creatinine Clearance 55 mL/min (70-130); Calcium 8.5 mg/dL (7.8-10.44); Carbon Dioxide 32 mmol/L (23-31); Chloride 102 mmol/L (98-107); Estimated GFR-MDRD 89; Glucose 132 mg/dL (83-110); Sodium 139 mmol/L (136-145)
[2019-05-10] MEDS: Ferrous Sulfate 325 MG TAB PO SCH ×2 (08:07→21:01)
[2019-05-10] MEDS: Docusate 100 MG CAP PO SCH ×2 (08:07→21:01)
[2019-05-10] MEDS: Famotidine 20 MG TAB PO SCH (08:07)
[2019-05-10] MEDS: Enoxaparin Sodium 40 MG/0.4 ML SYRINGE SC SCH (08:07)
[2019-05-10] MEDS: hydrALAZINE 25 MG TAB PO SCH ×2 (08:08→21:00)
[2019-05-10] MEDS: Sodium Chloride 0.65% Nasal 44 ML BOT EA NARE SCH ×3 (08:09→21:02)
[2019-05-10] MEDS: Polyethylene Glycol 3350 17 GM Packet PO SCH (08:09)
[2019-05-10] MEDS ORDERED: Fleet Enema 133 ML BOT PR SCH (13:30)
--- NOTE | 2019-05-10 15:16 | PDOC.HOSPP ---
- Subjective Encounter Date: 05/10/19 Subjective: SOB AND CONSTIPATION - Objective Vital Signs & Weight: Vital Signs (12 hours) Temp Pulse Resp BP BP Pulse Ox 05/10/19 14:17 79 20 05/10/19 08:08 79 135/77 05/10/19 08:00 97.5 F L 79 18 135/77 96 05/10/19 07:20 98 05/10/19 07:17 78 20 05/10/19 05:21 97.8 F 72 18 154/74 H 96 Weight Admit Weight 123 lb Weight 123 lb 14.4 oz I&O: 05/09/19 05/10/19 05/11/19 06:59 06:59 06:59 Intake Total 520 Balance 520 Result Diagrams: 05/10/19 06:59 05/10/19 06:59 Hospitalist ROS - Review of Systems Respiratory: reports: cough, shortness of breath - Medication Medications: Active Medications Generic Name Dose Route Start Last Admin Trade Name Freq PRN Reason Stop Dose Admin Acetaminophen 650 mg 05/06/19 05:00 05/07/19 00:02 Tylenol PO 650 mg Q4H PRN Administration Headache/Fever/Mild Pain (1-3) Hydrocodone Bitart/Acetaminophen 1 tab 05/06/19 05:00 05/07/19 01:11 [place] 5/325 PO 1 tab Q4H PRN Administration Moderate Pain (4-6) Alprazolam 0.5 mg 05/08/19 21:00 05/09/19 20:46 Xanax PO 0.5 mg HS SRAAH Administration Arformoterol Tartrate 15 mcg 05/06/19 06:30 05/10/19 07:17 Brovana NEB 15 mcg BID-RT SARAH Administration Benzonatate 100 mg 05/09/19 06:17 05/10/19 02:59 Tessalon PO 100 mg Q6H PRN Administration Cough Bisacodyl 10 mg 05/06/19 05:00 05/09/19 15:34 Dulcolax [place] 10 mg DAILYPRN PRN Administration Constipation Cholecalciferol 1,000 units 05/07/19 09:00 05/10/19 08:07 Vitamin D3 PO 1,000 units DAILY SARAH Administration Docusate Sodium 100 mg 05/07/19 21:00 05/10/19 08:07 Colace PO 100 mg BID SARAH Administration Enoxaparin Sodium 40 mg 05/06/19 09:00 05/10/19 08:07 Lovenox SC 40 mg 0900 SARAH Administration Famotidine 20 mg 05/06/19 09:00 05/10/19 08:07 Pepcid PO 20 mg DAILY SARAH Administration Ferrous Sulfate 325 mg 05/07/19 09:00 05/10/19 08:07 Feosol PO 325 mg BID SARAH Administration Guaifenesin/Dextromethorphan 15 ml 05/06/19 05:00 05/07/19 00:01 Robitussin Dm PO 15 ml Q4H PRN Administration Cough Hydralazine HCl 50 mg 05/09/19 21:00 05/10/19 08:08 Apresoline PO 50 mg BID SARAH Administration Ceftriaxone Sodium 1 gm/ 100 mls @ 200 mls/hr 05/06/19 05:00 05/10/19 05:24 Sodium Chloride IVPB 100 mls Q24HR SARAH Administration Labetalol HCl 20 mg 05/07/19 01:18 05/09/19 10:06 Normodyne SLOW IVP 20 mg Q8H PRN Administration SBP GREATER THAN 160 Levalbuterol HCl 0.63 mg 05/09/19 13:00 05/10/19 14:17 Xopenex NEB 0.63 mg [id number] SARAH Administration Methylprednisolone Sodium Succinate 20 mg 05/09/19 09:00 05/10/19 08:08 Solu-Medrol IVP 20 mg Q6H SARAH Administration Montelukast Sodium 10 mg 05/09/19 21:00 05/09/19 20:47 Singulair PO 10 mg QPM SARAH Administration Polyethylene Glycol 17 gm 05/07/19 09:00 05/10/19 08:09 Miralax PO Not Given DAILY SARAH Simvastatin 10 mg 05/07/19 21:00 05/09/19 20:47 Zocor PO 10 mg HS SARAH Administration Sodium Chloride 10 ml 05/06/19 21:00 05/10/19 08:08 Flush - Normal Saline IVF 10 ml Q12HR SARAH Administration Sodium Chloride 2 ml 05/09/19 09:00 05/10/19 08:09 [place] Nasal [place] 0.65% EA NARE 2 ml TID SARAH Administration Throat Lozenges 1 patricia 05/06/19 23:07 05/09/19 13:09 Cepastat Lozenges PO 1 patricia Q2H PRN Administration Sore Throat Verapamil HCl 240 mg 05/07/19 21:00 05/10/19 08:08 Calan Sr PO 240 mg BID SARAH Administration - Exam Eye: PERRL, anicteric sclera ENT: normocephalic atraumatic, no oropharyngeal lesions, moist mucosa Neck: supple, symmetric, no JVD, no thyromegaly, no lymphadenopathy, no carotid bruit Heart: RRR, no murmur, no gallops, no rubs, normal peripheral pulses Respiratory: wheezes Gastrointestinal: soft, non-tender, non-distended, normal bowel sounds, no palpable masses, no hepatomegaly, no splenomegaly, no bruit Extremities: no cyanosis, no clubbing, no edema Skin: no rashes Neurological: cranial nerve grossly intact, normal sensation to touch, no weakness, no focal deficits, no new deficit Musculoskeletal: normal tone, normal strength, no muscle wasting Psychiatric: normal behavior Hosp A/P (1) Acute on chronic respiratory failure with hypoxia Code(s): J96.21 - ACUTE AND CHRONIC RESPIRATORY FAILURE WITH HYPOXIA Status: Acute (2) COPD exacerbation Code(s): J44.1 - CHRONIC OBSTRUCTIVE PULMONARY DISEASE W (ACUTE) EXACERBATION Status: Acute (3) Hx TIA/stroke w/o resid Code(s): Z86.73 - PRSNL HX OF TIA (TIA), AND CEREB INFRC W/O RESID DEFICITS Status: Chronic (4) Costochondritis Code(s): M94.0 - CHONDROCOSTAL JUNCTION SYNDROME [TIETZE] Status: Resolved - Plan old records reviewed/req, out of bed/ambulate 1.Discharge plan once cleared by pulmonary service and symptomatic improvement.
--- NOTE | 2019-05-10 17:55 | PRG ---
DATE OF SERVICE: 05/10/2019 SUBJECTIVE: Vee Martinez had no complaints. OBJECTIVE: VITAL SIGNS: She is afebrile, heart rate is in the 70s, blood pressure 135/77, respiratory rate is 18, oximetry is 96 on 2L. LUNGS: Clear. HEART: Regular rhythm. ABDOMEN: Soft. Her main complaint is constipation. LABORATORY DATA: White count 12.2, hemoglobin 12.0, and platelets 211,000. Electrolytes are normal. CO2 is 32, BUN 30, and creatinine 0.63. IMPRESSION: Chronic obstructive pulmonary disease exacerbation. Other than constipation, she appears to be improving. Job ID: [id number]
[2019-05-10] MEDS: HYDROcodone/Acetaminophen 5/325 mg Tablet PO PRN (18:08)
[2019-05-10] MEDS: Montelukast Sodium 10 mg Tablet PO SCH (21:01)
[2019-05-10] MEDS: ALPRAZolam 0.5 MG TAB PO SCH (21:01)
[2019-05-10] MEDS: Simvastatin 5 MG TAB PO SCH (21:01)
[2019-05-11] MEDS: Levalbuterol HCl 0.63 MG/3 ML NEB NEB SCH ×3 (01:38→13:48)
[2019-05-11] MEDS: methylPREDNISolone Sod Succ 40 MG VIAL IVP SCH ×4 (02:44→20:18)
[2019-05-11] MEDS: cefTRIAXone\\ROCEPHIN 1 GM in Sodium Chloride 0.9% 100 ML IVPB SCH (04:30)
[2019-05-11] MEDS: Arformoterol 15 MCG/2 ML NEB NEB SCH (07:18)
[2019-05-11] MEDS: Ferrous Sulfate 325 MG TAB PO SCH ×2 (09:09→21:49)
[2019-05-11] MEDS: hydrALAZINE 25 MG TAB PO SCH ×2 (09:09→20:17)
[2019-05-11] MEDS: Docusate 100 MG CAP PO SCH ×2 (09:09→20:17)
[2019-05-11] MEDS: Famotidine 20 MG TAB PO SCH (09:09)
[2019-05-11] MEDS: Enoxaparin Sodium 40 MG/0.4 ML SYRINGE SC SCH (09:10)
[2019-05-11] MEDS: Polyethylene Glycol 3350 17 GM Packet PO SCH (09:11)
[2019-05-11] MEDS: Sodium Chloride 0.65% Nasal 44 ML BOT EA NARE SCH ×3 (09:12→21:49)
--- NOTE | 2019-05-11 10:28 | PDOC.HOSPP ---
- Subjective Encounter Date: 05/11/19 Subjective: SOB WITH COUGH AND EXPECTORATION - Objective Vital Signs & Weight: Vital Signs (12 hours) Temp Pulse Resp BP BP Pulse Ox 05/11/19 09:09 83 175/84 H 05/11/19 08:00 97.3 F L 83 22 H 175/84 H 96 05/11/19 07:22 96 05/11/19 07:18 87 20 05/11/19 04:00 97.6 F 85 17 153/72 H 96 05/11/19 01:38 85 20 97 05/11/19 00:00 97.5 F L 85 18 145/76 H 97 Weight Admit Weight 123 lb Weight 123 lb 14.4 oz I&O: 05/10/19 05/11/19 05/12/19 06:59 06:59 06:59 Intake Total 520 1720 Balance 520 1720 Result Diagrams: 05/10/19 06:59 05/10/19 06:59 Hospitalist ROS - Review of Systems Other: SOB WITH COUGH - Medication Medications: Active Medications Generic Name Dose Route Start Last Admin Trade Name Freq PRN Reason Stop Dose Admin Acetaminophen 650 mg 05/06/19 05:00 05/07/19 00:02 Tylenol PO 650 mg Q4H PRN Administration Headache/Fever/Mild Pain (1-3) Hydrocodone Bitart/Acetaminophen 1 tab 05/06/19 05:00 05/10/19 18:08 [place] 5/325 PO 1 tab Q4H PRN Administration Moderate Pain (4-6) Alprazolam 0.5 mg 05/08/19 21:00 05/10/19 21:01 Xanax PO 0.5 mg HS SARAH Administration Arformoterol Tartrate 15 mcg 05/06/19 06:30 05/11/19 07:18 Brovana NEB 15 mcg BID-RT SARAH Administration Benzonatate 100 mg 05/09/19 06:17 05/10/19 02:59 Tessalon PO 100 mg Q6H PRN Administration Cough Bisacodyl 10 mg 05/06/19 05:00 05/09/19 15:34 Dulcolax [place] 10 mg DAILYPRN PRN Administration Constipation Cholecalciferol 1,000 units 05/07/19 09:00 05/11/19 09:09 Vitamin D3 PO 1,000 units DAILY SARAH Administration Docusate Sodium 100 mg 05/07/19 21:00 05/11/19 09:09 Colace PO 100 mg BID SARAH Administration Enoxaparin Sodium 40 mg 05/06/19 09:00 05/11/19 09:10 Lovenox SC 40 mg 0900 SARAH Administration Famotidine 20 mg 05/06/19 09:00 05/11/19 09:09 Pepcid PO 20 mg DAILY SARAH Administration Ferrous Sulfate 325 mg 05/07/19 09:00 05/11/19 09:09 Feosol PO 325 mg BID SARAH Administration Guaifenesin/Dextromethorphan 15 ml 05/06/19 05:00 05/07/19 00:01 Robitussin Dm PO 15 ml Q4H PRN Administration Cough Hydralazine HCl 50 mg 05/09/19 21:00 05/11/19 09:09 Apresoline PO 50 mg BID SARAH Administration Ceftriaxone Sodium 1 gm/ 100 mls @ 200 mls/hr 05/06/19 05:00 05/11/19 04:30 Sodium Chloride IVPB 100 mls Q24HR SARAH Administration Labetalol HCl 20 mg 05/07/19 01:18 05/09/19 10:06 Normodyne SLOW IVP 20 mg Q8H PRN Administration SBP GREATER THAN 160 Levalbuterol HCl 0.63 mg 05/09/19 13:00 05/11/19 07:18 Xopenex NEB 0.63 mg [id number] SARAH Administration Methylprednisolone Sodium Succinate 20 mg 05/09/19 09:00 05/11/19 09:11 Solu-Medrol IVP 20 mg Q6H SARAH Administration Montelukast Sodium 10 mg 05/09/19 21:00 05/10/19 21:01 Singulair PO 10 mg QPM SARAH Administration Polyethylene Glycol 17 gm 05/07/19 09:00 05/11/19 09:11 Miralax PO Not Given DAILY SARAH Simvastatin 10 mg 05/07/19 21:00 05/10/19 21:01 Zocor PO 10 mg HS SARAH Administration Sodium Chloride 10 ml 05/06/19 21:00 05/11/19 09:11 Flush - Normal Saline IVF 10 ml Q12HR SARAH Administration Sodium Chloride 2 ml 05/09/19 09:00 05/11/19 09:12 [place] Nasal [place] 0.65% EA NARE 2 ml TID SARAH Administration Throat Lozenges 1 patricia 05/06/19 23:07 05/09/19 13:09 Cepastat Lozenges PO 1 patricia Q2H PRN Administration Sore Throat Verapamil HCl 240 mg 05/07/19 21:00 05/11/19 09:12 Calan Sr PO 240 mg BID SARAH Administration - Exam Eye: PERRL, anicteric sclera ENT: normocephalic atraumatic, no oropharyngeal lesions, moist mucosa Neck: supple, symmetric, no JVD, no thyromegaly, no lymphadenopathy, no carotid bruit Heart: RRR, no murmur, no gallops, no rubs, normal peripheral pulses Respiratory: tachypneic, wheezes Gastrointestinal: soft, non-tender, non-distended, normal bowel sounds, no palpable masses, no hepatomegaly, no splenomegaly, no bruit Extremities: no cyanosis, no clubbing, no edema Skin: normal turgor, no lesions, no rashes Neurological: cranial nerve grossly intact, normal sensation to touch, no weakness, no focal deficits, no new deficit Psychiatric: normal behavior Hosp A/P (1) Acute on chronic respiratory failure with hypoxia Code(s): J96.21 - ACUTE AND CHRONIC RESPIRATORY FAILURE WITH HYPOXIA Status: Acute Plan: RESOLVED.Pulmonary following. (2) COPD exacerbation Code(s): J44.1 - CHRONIC OBSTRUCTIVE PULMONARY DISEASE W (ACUTE) EXACERBATION Status: Acute Plan: Continue steroids and nebs with oxygen. (3) Hx TIA/stroke w/o resid Code(s): Z86.73 - PRSNL HX OF TIA (TIA), AND CEREB INFRC W/O RESID DEFICITS Status: Chronic (4) Costochondritis Code(s): M94.0 - CHONDROCOSTAL JUNCTION SYNDROME [TIETZE] Status: Resolved - Plan old records reviewed/req, PT/OT, out of bed/ambulate 1.Discharge plan once cleared by pulmonary service and symptomatic improvement.Continue iv steroids.
--- NOTE | 2019-05-11 13:29 | EKG ---
Test Reason : Blood Pressure : / mmHG Vent. Rate : 126 BPM Atrial Rate : 126 BPM P-R Int : 138 ms QRS Dur : 076 ms QT Int : 322 ms P-R-T Axes : 068 018 043 degrees QTc Int : 466 ms Sinus tachycardia Nonspecific ST abnormality Abnormal ECG When compared with ECG of 06-MAY-2019 01:57, (Unconfirmed) ST now depressed in Lateral leads Nonspecific T wave abnormality now evident in Inferior leads Confirmed by RICARDO JAUREGUI (2) on 05/11/2019 1:29:46 PM Referred By: Confirmed By:RICARDO JAUREGUI
[2019-05-11] MEDS: Levalbuterol HCl 1.25 MG/0.5 ML NEB NEB SCH ×3 (14:51→23:06)
[2019-05-11] MEDS: Simvastatin 5 MG TAB PO SCH (20:16)
[2019-05-11] MEDS: Cefdinir 300 MG CAP PO SCH (20:16)
[2019-05-11] MEDS: Montelukast Sodium 10 mg Tablet PO SCH (20:18)
--- NOTE | 2019-05-11 21:13 | PRG ---
DATE OF SERVICE: 05/11/2019 SUBJECTIVE: Ms. Martinez is still complaining of constipation. Says her chest feels more congested today. I have increased frequency of her Xopenex nebulizer treatments. She is on verapamil, which may be contributing to her constipation. OBJECTIVE: VITAL SIGNS: She is afebrile, heart rate 82, respiratory rate 18 to 20, blood pressure 175/84, oximetry is 95% on 2 L. LUNGS: Remarkable for diffuse small wheezes. HEART: Regular rhythm. ABDOMEN: Soft. EXTREMITIES: Without edema. IMPRESSION: 1. Chronic obstructive pulmonary disease exacerbation. 2. Constipation. 3. Deconditioning. PLAN: 1. Continue with laxatives as needed. 2. A different antihypertensive might be considered. 3. We will continue to increase her nebulizer frequency. Hopefully, we will see some improvement by tomorrow. Job ID: [id number]
[2019-05-11] MEDS: ALPRAZolam 0.5 MG TAB PO SCH (21:30)
[2019-05-11] MEDS ORDERED: Sodium Chloride For Inhalation 0.9% 3 ML NEB ONE ×2 (22:15→23:03)
[2019-05-11] MEDS: Cepastat Lozenges 1 LOZ PO PRN (23:26)
[2019-05-11] MEDS: Benzonatate 100 MG CAP PO PRN (23:53)
[2019-05-12] MEDS ORDERED: Sodium Chloride For Inhalation 0.9% 3 ML NEB ONE ×4 (02:19→14:00)
[2019-05-12] MEDS: Levalbuterol HCl 1.25 MG/0.5 ML NEB NEB SCH ×6 (02:20→22:47)
[2019-05-12] MEDS: methylPREDNISolone Sod Succ 40 MG VIAL IVP SCH ×2 (02:23→08:29)
[2019-05-12] MEDS: hydrALAZINE 20 MG/ML VIAL SLOW IVP PRN ×2 (04:16→16:46)
[2019-05-12 06:54] LABS: Hemoglobin 11.6 g/dL (12.0-16.0); Mean Corpuscular HGB CONC 32.8 g/dL (32.0-36.0); Mean Corpuscular Hemoglobin 33.4 pg (27.0-31.0); Mean Platelet Volume 7.9 fL (7.4-10.4); Platelet Count 227 thou/uL (130-400); RBC Distribution Width 11.6 % (11.5-14.5); Red Blood Cell (RBC) Count 3.48 mill/uL (4.20-5.40)
[2019-05-12 07:26] LABS: ALT (SGPT) 25 U/L (8-55); AST (SGOT) 20 U/L (5-34); Albumin 3.2 g/dL (3.4-4.8); Alkaline Phosphatase 54 U/L (40-110); Anion Gap 9 mmol/L (10-20); BUN (Urea Nitrogen) 24 mg/dL (9.8-20.1); Bilirubin, Total 0.2 mg/dL (0.2-1.2); Calc. Creatinine Clearance 55 mL/min (70-130); Calcium 8.4 mg/dL (7.8-10.44); Carbon Dioxide 32 mmol/L (23-31); Chloride 102 mmol/L (98-107); Estimated GFR-MDRD 89; Globulin 2.1 g/dL (2.4-3.5); Glucose 134 mg/dL (83-110); Potassium 4.7 mmol/L (3.5-5.1); Protein, Total 5.3 g/dL (6.0-8.3); Sodium 138 mmol/L (136-145)
[2019-05-12 08:03] LABS: Band 4 % (5-11); Lymphocytes 3 % (21-51); MDiff Complete? YES; Macrocytosis SLIGHT = 6-15 cells (100X) (0-5/hpf); Metamyelocyte 3 % (0-0); Monocytes 3 % (0-10); Myelocyte 3 % (0-0); Neutrophil 84 % (42-75); Platelet Morphology Comment Appears Adequate; Polychromasia SLIGHT = 2-3 cells (100X) (0-2/hpf)
[2019-05-12] MEDS: Enoxaparin Sodium 40 MG/0.4 ML SYRINGE SC SCH (08:20)
[2019-05-12] MEDS: Cefdinir 300 MG CAP PO SCH ×2 (08:21→20:42)
[2019-05-12] MEDS: Polyethylene Glycol 3350 17 GM Packet PO SCH (08:21)
[2019-05-12] MEDS: Ferrous Sulfate 325 MG TAB PO SCH ×2 (08:22→20:44)
[2019-05-12] MEDS: hydrALAZINE 25 MG TAB PO SCH ×2 (08:22→20:42)
[2019-05-12] MEDS: Docusate 100 MG CAP PO SCH ×2 (08:22→20:45)
[2019-05-12] MEDS: Famotidine 20 MG TAB PO SCH (08:22)
[2019-05-12] MEDS: Sodium Chloride 0.65% Nasal 44 ML BOT EA NARE SCH ×3 (08:29→20:46)
--- NOTE | 2019-05-12 09:59 | PRG ---
DATE OF SERVICE: 05/12/2019 SUBJECTIVE: The patient is doing a little better. She is still very aggravated that she is not completely well. OBJECTIVE: VITAL SIGNS: Temperature is 97.9, pulse 95, blood pressure 178/80, O2 saturation 95%. HEENT: Unremarkable. NECK: No adenopathy or JVD. LUNGS: Clear without wheezing. CARDIAC: S1, S2. Regular. ABDOMEN: Soft. EXTREMITIES: No edema. LABORATORY DATA: White blood cell count 13, hematocrit 35, and platelet count 227. Sodium 138, potassium 4.7, BUN 24, creatinine 0.6, glucose 134. ASSESSMENT: 1. Upper respiratory tract infection. 2. Chronic obstructive pulmonary disease with exacerbation. PLAN: 1. Increase activity as tolerated. 2. Change to oral steroids. 3. Home once her deconditioning has improved. Job ID: [id number]
--- NOTE | 2019-05-12 12:44 | PDOC.HOSPP ---
- Subjective Encounter Date: 05/12/19 Subjective: SOB AND HAS DIFFICULTY AMBULATING - Objective Vital Signs & Weight: Vital Signs (12 hours) Temp Pulse Resp BP BP Pulse Ox 05/12/19 10:33 83 16 91 L 05/12/19 08:22 95 05/12/19 08:00 97.8 F 95 20 178/80 H 95 05/12/19 07:47 96 16 97 05/12/19 05:45 157/78 H 05/12/19 05:14 175/81 H 05/12/19 04:16 84 180/83 H 05/12/19 04:00 97.4 F L 84 20 97 Weight Admit Weight 123 lb Weight 123 lb 14.4 oz I&O: 05/11/19 05/12/19 05/13/19 06:59 06:59 06:59 Intake Total 1720 1440 240 Balance 1720 1440 240 Result Diagrams: 05/12/19 06:31 05/12/19 06:31 Hospitalist ROS - Review of Systems Respiratory: reports: shortness of breath, wheezing - Medication Medications: Active Medications Generic Name Dose Route Start Last Admin Trade Name Freq PRN Reason Stop Dose Admin Acetaminophen 650 mg 05/06/19 05:00 05/07/19 00:02 Tylenol PO 650 mg Q4H PRN Administration Headache/Fever/Mild Pain (1-3) Hydrocodone Bitart/Acetaminophen 1 tab 05/06/19 05:00 05/10/19 18:08 [place] 5/325 PO 1 tab Q4H PRN Administration Moderate Pain (4-6) Alprazolam 0.5 mg 05/08/19 21:00 05/11/19 21:30 Xanax PO 0.5 mg HS SARAH Administration Benzonatate 100 mg 05/09/19 06:17 05/11/19 23:53 Tessalon PO 100 mg Q6H PRN Administration Cough Bisacodyl 10 mg 05/06/19 05:00 05/09/19 15:34 Dulcolax [place] 10 mg DAILYPRN PRN Administration Constipation Cefdinir 300 mg 05/11/19 21:00 05/12/19 08:21 Omnicef PO 300 mg BID SARAH Administration Cholecalciferol 1,000 units 05/07/19 09:00 05/12/19 08:21 Vitamin D3 PO 1,000 units DAILY SARAH Administration Docusate Sodium 100 mg 05/07/19 21:00 05/12/19 08:22 Colace PO 100 mg BID SARAH Administration Enoxaparin Sodium 40 mg 05/06/19 09:00 05/12/19 08:20 Lovenox SC 40 mg 0900 SARAH Administration Famotidine 20 mg 05/06/19 09:00 05/12/19 08:22 Pepcid PO 20 mg DAILY SARAH Administration Ferrous Sulfate 325 mg 05/07/19 09:00 05/12/19 08:22 Feosol PO 325 mg BID SARAH Administration Guaifenesin/Dextromethorphan 15 ml 05/06/19 05:00 05/07/19 00:01 Robitussin Dm PO 15 ml Q4H PRN Administration Cough Hydralazine HCl 10 mg 05/08/19 19:48 05/12/19 04:16 Apresoline SLOW IVP 10 mg Q4H PRN Administration SBP Greater Than 180 Hydralazine HCl 50 mg 05/09/19 21:00 05/12/19 08:22 Apresoline PO 50 mg BID SARAH Administration Labetalol HCl 20 mg 05/07/19 01:18 05/09/19 10:06 Normodyne SLOW IVP 20 mg Q8H PRN Administration SBP GREATER THAN 160 Levalbuterol HCl 1.25 mg 05/12/19 10:30 05/12/19 10:33 Xopenex Conc NEB 1.25 mg [id number] SARAH Administration Montelukast Sodium 10 mg 05/09/19 21:00 05/11/19 20:18 Singulair PO 10 mg QPM SARAH Administration Polyethylene Glycol 17 gm 05/07/19 09:00 05/12/19 08:21 Miralax PO 17 gm DAILY SARAH Administration Simvastatin 10 mg 05/07/19 21:00 05/11/19 20:16 Zocor PO 10 mg HS SARAH Administration Sodium Chloride 10 ml 05/06/19 21:00 05/12/19 08:48 Flush - Normal Saline IVF 10 ml Q12HR SARAH Administration Sodium Chloride 2 ml 05/09/19 09:00 05/12/19 08:29 [place] Nasal [place] 0.65% EA NARE 2 ml TID SARAH Administration Throat Lozenges 1 patricia 05/06/19 23:07 05/11/19 23:26 Cepastat Lozenges PO 1 [place]ricia Q2H PRN Administration Sore Throat Verapamil HCl 240 mg 05/07/19 21:00 05/12/19 08:21 Calan Sr PO 240 mg BID SARAH Administration - Exam Eye: PERRL, anicteric sclera ENT: normocephalic atraumatic, no oropharyngeal lesions, moist mucosa Neck: supple, symmetric, no JVD, no thyromegaly, no lymphadenopathy, no carotid bruit Heart: RRR, no murmur, no gallops, no rubs, normal peripheral pulses Respiratory: CTAB, no tachypnea, wheezes Gastrointestinal: soft, non-tender, non-distended, normal bowel sounds, no palpable masses, no hepatomegaly, no splenomegaly, no bruit Extremities: no cyanosis, no clubbing, no edema Skin: normal turgor, no lesions, no rashes Neurological: no focal deficits, no new deficit Psychiatric: normal behavior Hosp A/P (1) Acute on chronic respiratory failure with hypoxia Code(s): J96.21 - ACUTE AND CHRONIC RESPIRATORY FAILURE WITH HYPOXIA Status: Resolved (2) COPD exacerbation Code(s): J44.1 - CHRONIC OBSTRUCTIVE PULMONARY DISEASE W (ACUTE) EXACERBATION Status: Acute (3) Hx TIA/stroke w/o resid Code(s): Z86.73 - PRSNL HX OF TIA (TIA), AND CEREB INFRC W/O RESID DEFICITS Status: Chronic (4) Costochondritis Code(s): M94.0 - CHONDROCOSTAL JUNCTION SYNDROME [TIETZE] Status: Resolved - Plan old records reviewed/req, PT/OT, social media specialist 1.Transition to oral steroids today. 2.Continue PT/OT for likely placement to snf. 3.Discharge plan once patient is more asymptomatic and eventually to snf.
[2019-05-12] MEDS: predniSONE 20 MG TAB PO SCH (16:27)
[2019-05-12] MEDS: Montelukast Sodium 10 mg Tablet PO SCH (20:42)
[2019-05-12] MEDS: Simvastatin 5 MG TAB PO SCH (20:44)
[2019-05-12] MEDS: ALPRAZolam 0.5 MG TAB PO SCH (20:44)
[2019-05-13] MEDS: Levalbuterol HCl 1.25 MG/0.5 ML NEB NEB SCH ×6 (01:38→22:17)
[2019-05-13] MEDS: Famotidine 20 MG TAB PO SCH (08:48)
[2019-05-13] MEDS: hydrALAZINE 25 MG TAB PO SCH ×2 (08:48→20:06)
[2019-05-13] MEDS: predniSONE 20 MG TAB PO SCH ×2 (08:48→17:00)
[2019-05-13] MEDS: Ferrous Sulfate 325 MG TAB PO SCH ×2 (08:48→20:06)
[2019-05-13] MEDS: Docusate 100 MG CAP PO SCH ×2 (08:48→20:06)
[2019-05-13] MEDS: Cefdinir 300 MG CAP PO SCH ×2 (08:48→20:07)
[2019-05-13] MEDS: Sodium Chloride 0.65% Nasal 44 ML BOT EA NARE SCH ×3 (08:49→19:45)
[2019-05-13] MEDS: Polyethylene Glycol 3350 17 GM Packet PO SCH (08:49)
[2019-05-13] MEDS: Enoxaparin Sodium 40 MG/0.4 ML SYRINGE SC SCH (08:51)
--- NOTE | 2019-05-13 09:20 | PRG ---
DATE OF SERVICE: 05/13/2019 SUBJECTIVE: For the first time since she was originally hospitalized, she feels better. She was able to walk around some yesterday. OBJECTIVE: VITAL SIGNS: Temperature is 97.8, pulse 84, respirations 19, O2 saturation 97% on 2 L, and blood pressure 153/82. HEENT: Unremarkable. NECK: No adenopathy or JVD. LUNGS: Coarse rhonchi bilaterally. CARDIAC: S1 and S2. Regular. ABDOMEN: Soft. EXTREMITIES: No edema. ASSESSMENT: Chronic obstructive pulmonary disease/asthma with exacerbation. PLAN: She is finally getting to the point, where she is probably close to go home. I would anticipate this possibly being tomorrow. She is on maximal medical therapy at this time. We will follow. Job ID: [id number]
--- NOTE | 2019-05-13 11:37 | PDOC.HOSPP ---
- Subjective Encounter Date: 05/13/19 Subjective: SOB WITH FEELING WEAK. - Objective Vital Signs & Weight: Vital Signs (12 hours) Temp Pulse Resp BP Pulse Ox 05/13/19 11:04 88 17 05/13/19 08:48 84 05/13/19 08:00 97 05/13/19 07:30 84 19 05/13/19 07:21 97.8 F 78 20 153/82 H 97 05/13/19 04:00 97.4 F L 82 20 146/83 H 95 05/13/19 01:38 82 20 94 L 05/13/19 00:00 97.9 F 84 18 126/71 97 Weight Admit Weight 123 lb Weight 123 lb 14.4 oz I&O: 05/12/19 05/13/19 05/14/19 06:59 06:59 06:59 Intake Total 1440 1220 240 Balance 1440 1220 240 Result Diagrams: 05/12/19 06:31 05/12/19 06:31 Hospitalist ROS - Review of Systems Other: sob and cough - Medication Medications: Active Medications Generic Name Dose Route Start Last Admin Trade Name Freq PRN Reason Stop Dose Admin Acetaminophen 650 mg 05/06/19 05:00 05/07/19 00:02 Tylenol PO 650 mg Q4H PRN Administration Headache/Fever/Mild Pain (1-3) Hydrocodone Bitart/Acetaminophen 1 tab 05/06/19 05:00 05/10/19 18:08 [place] 5/325 PO 1 tab Q4H PRN Administration Moderate Pain (4-6) Alprazolam 0.5 mg 05/08/19 21:00 05/12/19 20:44 Xanax PO 0.5 mg HS SARAH Administration Benzonatate 100 mg 05/09/19 06:17 05/11/19 23:53 Tessalon PO 100 mg Q6H PRN Administration Cough Bisacodyl 10 mg 05/06/19 05:00 05/09/19 15:34 Dulcolax [place] 10 mg DAILYPRN PRN Administration Constipation Cefdinir 300 mg 05/11/19 21:00 05/13/19 08:48 Omnicef PO 300 mg BID SARAH Administration Cholecalciferol 1,000 units 05/07/19 09:00 05/13/19 08:48 Vitamin D3 PO 1,000 units DAILY SARAH Administration Docusate Sodium 100 mg 05/07/19 21:00 05/13/19 08:48 Colace PO 100 mg BID SARAH Administration Enoxaparin Sodium 40 mg 05/06/19 09:00 05/13/19 08:51 Lovenox SC 40 mg 0900 SARAH Administration Famotidine 20 mg 05/06/19 09:00 05/13/19 08:48 Pepcid PO 20 mg DAILY SARAH Administration Ferrous Sulfate 325 mg 05/07/19 09:00 05/13/19 08:48 Feosol PO 325 mg BID SARAH Administration Guaifenesin/Dextromethorphan 15 ml 05/06/19 05:00 05/07/19 00:01 Robitussin Dm PO 15 ml Q4H PRN Administration Cough Hydralazine HCl 10 mg 05/08/19 19:48 05/12/19 16:46 Apresoline SLOW IVP 10 mg Q4H PRN Administration SBP Greater Than 180 Hydralazine HCl 50 mg 05/09/19 21:00 05/13/19 08:48 Apresoline PO 50 mg BID SARAH Administration Labetalol HCl 20 mg 05/07/19 01:18 05/09/19 10:06 Normodyne SLOW IVP 20 mg Q8H PRN Administration SBP GREATER THAN 160 Levalbuterol HCl 1.25 mg 05/12/19 10:30 05/13/19 11:04 Xopenex Conc NEB 1.25 mg [id number] SARAH Administration Montelukast Sodium 10 mg 05/09/19 21:00 05/12/19 20:42 Singulair PO 10 mg QPM SARAH Administration Polyethylene Glycol 17 gm 05/07/19 09:00 05/13/19 08:49 Miralax PO Not Given DAILY SARAH Prednisone 20 mg 05/12/19 17:00 05/13/19 08:48 Prednisone PO 20 mg BID-WM SARAH Administration Simvastatin 10 mg 05/07/19 21:00 05/12/19 20:44 Zocor PO 10 mg HS SARAH Administration Sodium Chloride 10 ml 05/06/19 21:00 05/13/19 08:48 Flush - Normal Saline IVF 10 ml Q12HR SARAH Administration Sodium Chloride 2 ml 05/09/19 09:00 05/13/19 08:[address] [place] [address] Nasal [place] 0.65% EA NARE 2 ml TID SARAH Administration Throat Lozenges 1 patricia 05/06/19 23:07 05/11/19 23:26 Cepastat Lozenges PO 1 patricia Q2H PRN Administration Sore Throat Verapamil HCl 240 mg 05/07/19 21:00 05/13/19 08:48 Calan Sr PO 240 mg BID SARAH Administration - Exam General Appearance: awake alert Eye: PERRL, anicteric sclera ENT: normocephalic atraumatic, no oropharyngeal lesions, moist mucosa Neck: supple, symmetric, no JVD, no thyromegaly, no lymphadenopathy, no carotid bruit Heart: RRR, no murmur, no gallops, no rubs, normal peripheral pulses Respiratory: rales Gastrointestinal: soft, non-tender, non-distended, normal bowel sounds, no palpable masses, no hepatomegaly, no splenomegaly, no bruit Extremities: no cyanosis, no clubbing, no edema Skin: normal turgor, no lesions, no rashes Neurological: cranial nerve grossly intact, normal sensation to touch, no weakness, no focal deficits, no new deficit Musculoskeletal: normal tone, normal strength, no muscle wasting Psychiatric: normal affect, normal behavior, A&O x 3 Hosp A/P (1) Acute on chronic respiratory failure with hypoxia Code(s): J96.21 - ACUTE AND CHRONIC RESPIRATORY FAILURE WITH HYPOXIA Status: Resolved (2) COPD exacerbation Code(s): J44.1 - CHRONIC OBSTRUCTIVE PULMONARY DISEASE W (ACUTE) EXACERBATION Status: Acute (3) Hx TIA/stroke w/o resid Code(s): Z86.73 - PRSNL HX OF TIA (TIA), AND CEREB INFRC W/O RESID DEFICITS Status: Chronic (4) Costochondritis Code(s): M94.0 - CHONDROCOSTAL JUNCTION SYNDROME [TIETZE] Status: Resolved - Plan old records reviewed/req, PT/OT 1.Transition to oral steroids today. 2.Continue PT/OT for likely placement to snf. 3.Likely discharge plan in am per Dr Benedict,Pulmonary.
[2019-05-13] MEDS: Montelukast Sodium 10 mg Tablet PO SCH (20:05)
[2019-05-13] MEDS: Simvastatin 5 MG TAB PO SCH (20:06)
[2019-05-13] MEDS: ALPRAZolam 0.5 MG TAB PO SCH (20:07)
[2019-05-14] MEDS: Levalbuterol HCl 1.25 MG/0.5 ML NEB NEB SCH ×6 (02:19→22:10)
[2019-05-14] MEDS: predniSONE 20 MG TAB PO SCH ×2 (08:44→17:24)
[2019-05-14] MEDS: Cefdinir 300 MG CAP PO SCH ×2 (08:44→20:25)
[2019-05-14] MEDS: Ferrous Sulfate 325 MG TAB PO SCH ×2 (08:44→20:25)
[2019-05-14] MEDS: Famotidine 20 MG TAB PO SCH (08:44)
[2019-05-14] MEDS: Docusate 100 MG CAP PO SCH ×2 (08:44→20:25)
[2019-05-14] MEDS: hydrALAZINE 25 MG TAB PO SCH ×2 (08:45→20:25)
[2019-05-14] MEDS: Enoxaparin Sodium 40 MG/0.4 ML SYRINGE SC SCH (08:45)
[2019-05-14] MEDS: Polyethylene Glycol 3350 17 GM Packet PO SCH (08:50)
[2019-05-14] MEDS: Sodium Chloride 0.65% Nasal 44 ML BOT EA NARE SCH ×3 (08:56→20:26)
--- NOTE | 2019-05-14 09:10 | PRG ---
DATE OF SERVICE: 05/14/2019 SUBJECTIVE: She starting to feel better. She walked the halls yesterday without much difficulty. OBJECTIVE: VITAL SIGNS: Temperature 97.8, pulse 78, respirations 16, O2 saturation 96%, and blood pressure 156/84. HEENT: Unremarkable. NECK: No JVD. LUNGS: She has mild diffuse wheezing. CARDIAC: S1 and S2, regular. ABDOMEN: Soft. EXTREMITIES: No edema. ASSESSMENT: Chronic obstructive pulmonary disease with exacerbation, continuing to slowly improve. PLAN: She is approaching the point of hospital discharge. She was somewhat equivocal about being discharged today. I do think she is likely stable enough to go home by tomorrow at the latest. Job ID: [id number]
--- NOTE | 2019-05-14 14:04 | PDOC.HOSPP ---
- Subjective Encounter Date: 05/14/19 Encounter Time: 13:50 Subjective: Patient reports that her breathing is better but has SOB with minimal activity. She states she doesn't use a cane or walker and drives herself. She is eager to be discharged and return to her prior activities. No N/V/D/C. No fever or chills. - Objective Vital Signs & Weight: Vital Signs (12 hours) Temp Pulse Resp BP BP Pulse Ox 05/14/19 11:26 98.2 F 84 18 117/66 91 L 05/14/19 10:38 91 16 95 05/14/19 08:45 78 156/84 H 05/14/19 08:00 96 05/14/19 07:49 97.8 F 78 16 156/84 H 96 05/14/19 07:09 99 16 98 05/14/19 04:00 97.4 F L 86 18 158/75 H 97 05/14/19 02:19 16 Weight Admit Weight 123 lb Weight 123 lb 14.4 oz I&O: 05/13/19 05/14/19 05/15/19 06:59 06:59 06:59 Intake Total 1220 720 Balance 1220 720 Result Diagrams: 05/12/19 06:31 05/12/19 06:31 Hospitalist ROS - Medication Medications: Active Medications Generic Name Dose Route Start Last Admin Trade Name Freq PRN Reason Stop Dose Admin Acetaminophen 650 mg 05/06/19 05:00 05/07/19 00:02 Tylenol PO 650 mg Q4H PRN Administration Headache/Fever/Mild Pain (1-3) Hydrocodone Bitart/Acetaminophen 1 tab 05/06/19 05:00 05/10/19 18:08 [place] 5/325 PO 1 tab Q4H PRN Administration Moderate Pain (4-6) Alprazolam 0.5 mg 05/08/19 21:00 05/13/19 20:07 Xanax PO 0.5 mg HS SARAH Administration Benzonatate 100 mg 05/09/19 06:17 05/11/19 23:53 Tessalon PO 100 mg Q6H PRN Administration Cough Bisacodyl 10 mg 05/06/19 05:00 05/09/19 15:34 Dulcolax [place] 10 mg DAILYPRN PRN Administration Constipation Cefdinir 300 mg 05/11/19 21:00 05/14/19 08:44 Omnicef PO 300 mg BID SARAH Administration Cholecalciferol 1,000 units 05/07/19 09:00 05/14/19 08:44 Vitamin D3 PO 1,000 units DAILY SARAH Administration Docusate Sodium 100 mg 05/07/19 21:00 05/14/19 08:44 Colace PO 100 mg BID SARAH Administration Enoxaparin Sodium 40 mg 05/06/19 09:00 05/14/19 08:45 Lovenox SC 40 mg 0900 SARAH Administration Famotidine 20 mg 05/06/19 09:00 05/14/19 08:44 Pepcid PO 20 mg DAILY SARAH Administration Ferrous Sulfate 325 mg 05/07/19 09:00 05/14/19 08:44 Feosol PO 325 mg BID SARAH Administration Guaifenesin/Dextromethorphan 15 ml 05/06/19 05:00 05/07/19 00:01 Robitussin Dm PO 15 ml Q4H PRN Administration Cough Hydralazine HCl 10 mg 05/08/19 19:48 05/12/19 16:46 Apresoline SLOW IVP 10 mg Q4H PRN Administration SBP Greater Than 180 Hydralazine HCl 50 mg 05/09/19 21:00 05/14/19 08:45 Apresoline PO 50 mg BID SARAH Administration Labetalol HCl 20 mg 05/07/19 01:18 05/09/19 10:06 Normodyne SLOW IVP 20 mg Q8H PRN Administration SBP GREATER THAN 160 Levalbuterol HCl 1.25 mg 05/12/19 10:30 05/14/19 10:38 Xopenex Conc NEB 1.25 mg [id number] SARAH Administration Montelukast Sodium 10 mg 05/09/19 21:00 05/13/19 20:05 Singulair PO 10 mg QPM SARAH Administration Polyethylene Glycol 17 gm 05/07/19 09:00 05/14/19 08:50 Miralax PO Not Given DAILY SARAH Prednisone 20 mg 05/12/19 17:00 05/14/19 08:44 Prednisone PO 20 mg BID-WM SARAH Administration Simvastatin 10 mg 05/07/19 21:00 05/13/19 20:06 Zocor PO 10 mg HS SARAH Administration Sodium Chloride 10 ml 05/06/19 21:00 05/13/19 20:07 Flush - Normal Saline IVF 10 ml Q12HR SARAH Administration Sodium Chloride 2 ml 05/09/19 09:00 05/14/19 08:56 [place] Nasal [place] 0.65% EA NARE Not Given TID SARAH Throat Lozenges 1 patricia 05/06/19 23:07 05/11/19 23:26 Cepastat Lozenges PO 1 patricia Q2H PRN Administration Sore Throat Verapamil HCl 240 mg 05/07/19 21:00 05/14/19 09:16 Calan Sr PO 240 mg BID SARAH Administration - Exam General Appearance: NAD, awake alert (mild distress) Eye: PERRL, anicteric sclera ENT: normocephalic atraumatic, no oropharyngeal lesions Neck: supple Heart: RRR, no murmur, no gallops Respiratory - other findings: reduced air entry bilaterally; not using accessory muscles of respiration Gastrointestinal: soft, non-tender, non-distended, normal bowel sounds Hosp A/P (1) COPD exacerbation Code(s): J44.1 - CHRONIC OBSTRUCTIVE PULMONARY DISEASE W (ACUTE) EXACERBATION Status: Acute Plan: Improving pulm. on board Likely DC home with home health tomorrow PO steroids (2) Acute on chronic respiratory failure with hypoxia Code(s): J96.21 - ACUTE AND CHRONIC RESPIRATORY FAILURE WITH HYPOXIA Status: Resolved Plan: Keep sats 88-92% Pt. back to home O2 requirements (3) HTN (hypertension) Code(s): I10 - ESSENTIAL (PRIMARY) HYPERTENSION Status: Chronic Qualifiers: Hypertension type: essential hypertension Qualified Code(s): I10 - Essential (primary) hypertension Plan: Stable BP Continue home meds (4) Hx TIA/stroke w/o resid Code(s): Z86.73 - PRSNL HX OF TIA (TIA), AND CEREB INFRC W/O RESID DEFICITS Status: Chronic Plan: Statin therapy Stable - Plan PT/OT, out of bed/ambulate
[2019-05-14] MEDS: Montelukast Sodium 10 mg Tablet PO SCH (20:25)
[2019-05-14] MEDS: Simvastatin 5 MG TAB PO SCH (20:26)
[2019-05-14] MEDS: ALPRAZolam 0.5 MG TAB PO SCH (20:26)
[2019-05-15] MEDS: Levalbuterol HCl 1.25 MG/0.5 ML NEB NEB SCH ×3 (02:10→09:53)
[2019-05-15 08:33] VITALS: TEMP 97.8
[2019-05-15 08:35] VITALS: BP 148/69
[2019-05-15] MEDS: Cefdinir 300 MG CAP PO SCH (09:13)
[2019-05-15] MEDS: hydrALAZINE 25 MG TAB PO SCH (09:13)
[2019-05-15] MEDS: Famotidine 20 MG TAB PO SCH (09:14)
[2019-05-15] MEDS: Docusate 100 MG CAP PO SCH (09:14)
[2019-05-15] MEDS: predniSONE 20 MG TAB PO SCH (09:14)
[2019-05-15] MEDS: Ferrous Sulfate 325 MG TAB PO SCH (09:15)
[2019-05-15] MEDS: Polyethylene Glycol 3350 17 GM Packet PO SCH (09:16)
[2019-05-15] MEDS: Sodium Chloride 0.65% Nasal 44 ML BOT EA NARE SCH (09:16)
[2019-05-15] MEDS: Enoxaparin Sodium 40 MG/0.4 ML SYRINGE SC SCH (09:17)
--- NOTE | 2019-05-16 04:24 | PQF ---
[employer] Crystal Reports Winform ViewerJOSSE GRANGER SCOTT E MD [id number] [facility] [id number] CLINICAL DOCUMENTATION CLARIFICATION FORM: POST DISCHARGE Addendum to original discharge summary date: ____ Late entry note date: __ DATE: 05/16/2019 ATTN: LULÚ QUINN MD Please exercise your independent, professional judgment in responding to the clarification form. Clinical indicators are provided on the bottom of this form for your review Diagnosis: ____Acute on Chronic Hypoxic Respiratory Failure___ Present on Admission (POA): [ ] Yes [ ] No [ ] Unable to determine Coding guidelines require hospitals to identify whether a diagnosis was present on admission (POA) or not. To accurately assign the appropriate POA indicator, this information must be clearly documented within the medical record. CLINICAL INDICATORS - SIGNS / SYMPTOMS / LABS O2 Saturation 91 on 05/06 - Documented in Vital Signs Respiration rate 24 on 05/06 - Documented in Vital Signs Hypoxia - Documented in ED pg#10 She stated at home her O2 saturation was in the 80s before starting home O2 today - Documented in H&P on 05/06 by Evan Campos MD CT chest since degree of hypoxia does not seems to correlate with patient's respiratory findings on examination - Documented in H&P on 05/06 by Evan Campos MD RISK FACTORS: COPD exacerbation - Documented in H&P on 05/06 by Evan Campos MD HTN Acute on Chronic Hypoxic Respiratory Failure - Documented in Hospital PNs on by Marc Forman TREATMENT: Continue O2 with slow tapering as tolerated - Documented in H&P on 05/06 by Evan Campos MD O2 Delivery Nasal Cannula given DuoNeb Continue oxygen, steroids, bronchodilators and antibiotics [employer] Win[employer]er (This form is maintained as a part of the permanent medical record) 2014 [employer]. All Rights Reserved [email or web address] [not provided] MTDD
--- NOTE | 2019-05-16 08:10 | DIS ---
DATE OF ADMISSION: 05/06/2019 DATE OF DISCHARGE: 05/15/2019 PRIMARY CARE PHYSICIAN: Sylvia Lindo MD. ADMISSION DIAGNOSES: 1. Chronic obstructive pulmonary disease exacerbation. 2. Essential hypertension. DISCHARGE DIAGNOSES: 1. Chronic obstructive pulmonary disease exacerbation, improving. 2. Acute on chronic hypoxic and hypercarbic respiratory failure. 3. Essential hypertension. CONSULTATIONS: Dr. Carmelo Benedict from Pulmonary and Critical Care Medicine. PROCEDURES AND IMAGING: The patient underwent CT scan of the chest on 05/06/2019. This did not reveal any consolidation or pneumonia. Emphysematous changes were seen. HOSPITAL COURSE: The patient is an 89-year-old female with a past medical history of COPD, who intermittently uses home oxygen, presented to the emergency department due to worsening shortness of breath and wheezing over 5 days' duration. The patient was diagnosed with COPD exacerbation and was admitted to the hospital. The patient was placed on steroids and antibiotic therapy. Pulmonary and Critical Care Medicine was consulted, and the patient was evaluated by Dr. Carmelo Benedict. Throughout hospital course, the patient's respiratory status improved. The patient has been cleared by Pulmonary and Critical Care Medicine to be discharged to home. The patient was felt to benefit from Home Health. Hence, Home Health has been set up and this will start on 05/16/2019. As the patient is close to her baseline and has been cleared by Pulmonary and Critical Care Medicine, the patient has been deemed stable to be discharged to home today, so that she can be with her family on . DISCHARGE PHYSICAL EXAMINATION: On the day of discharge, the patient is sitting in the bed and appears to be in no acute distress. Auscultation of the lungs revealed intermittent end-expiratory wheezing which disappeared with coughing up sputum. The patient has good air entry bilaterally. Auscultation of the heart revealed first and second heart sounds. Regular rate and rhythm. DISCHARGE INSTRUCTIONS: 1. Discharge disposition: Home with Home Health. 2. Discharge medications: Reconciled. 3. Discharge followup: a. Dr. Sylvia Lindo in [address] Carmelo Benedict in 2-3 weeks. 4. Discharge activity: As tolerated and as per Physical Therapy and Occupational Therapy. 5. Discharge diet: Low-sodium diet. TIME SPENT: Total time taken for discharge 40 minutes. Job ID: [id number]
--- NOTE | 2019-05-17 21:08 | EKG ---
Test Reason : SOB Blood Pressure : / mmHG Vent. Rate : 088 BPM Atrial Rate : 088 BPM P-R Int : 150 ms QRS Dur : 080 ms QT Int : 370 ms P-R-T Axes : 045 -14 058 degrees QTc Int : 447 ms Normal sinus rhythm Normal ECG Confirmed by ARSH SAINI ([id number]), video news editor MAURICIO DAMON ([id number]) on 05/17/2019 9:07:18 PM Referred By: Confirmed By:ARSH SAINI
== END 2019-05-15 11:14 | disposition home health service (06) | DRG 189 ==
LOC: ERS 01:40 → T4-B 04:53
PROVIDERS: ADMIT Internal Medicine; ATTEND Internal Medicine
DX: J96.21 Acute and chronic respiratory failure with hypoxia (principal); J44.1 Chronic obstructive pulmonary disease with (acute) exacerbation; I10 Essential (primary) hypertension; Z99.81 Dependence on supplemental oxygen; Z86.73 Personal history of transient ischemic attack (TIA), and cerebral infarction without residual deficits; Z91.041 Radiographic dye allergy status; Z90.710 Acquired absence of both cervix and uterus; Z90.89 Acquired absence of other organs; Z87.891 Personal history of nicotine dependence; Z79.82 Long term (current) use of aspirin; Z79.899 Other long term (current) drug therapy; M94.0 Chondrocostal junction syndrome [Tietze]; R53.81 Other malaise; K59.00 Constipation, unspecified; J06.9 Acute upper respiratory infection, unspecified
CPT/HCPCS: 36415; 36416; 71045; 71250; 80048; 80053; 83605; 83735; 83880; 84145; 84484; 85007; 85025; 85027; 87070; 87205; 87804; 93005; 93010; 94640; J0360; J0696; J1650; J1940; J2920; J3490; J7512; J7611; J7612; J7614; J7620

== ENCOUNTER 2019-08-11 10:02 | Outpatient (CLI) | payer MEDICARE ==
--- NOTE | 2019-08-11 10:54 | BD ---
EXAM: DEXA bone density examination HISTORY: 89-year-old postmenopausal female for screening COMPARISON: None FINDINGS: L1--bone mineral density 1.550 g/sq cm; T score 5.1 L2--bone mineral density 1.196 g/sq cm; T score 1.5 L3--bone mineral density 1.186 g/sq cm; T score 0.9 L4--bone mineral density 1.050 g/sq cm; T score -0.1 Total L1-L4--bone mineral density 1.242 g/sq cm; T score 1.8 Left femoral neck--bone mineral density0.516; T score -3.0 Total proximal left femur--bone mineral density 0.772; T score -1.4 IMPRESSION: Osteoporosis.
--- NOTE | 2019-08-11 11:24 | MMO ---
Bilateral MAMMO Bilat Screen [facility]. CLINICAL HISTORY: Patient is 89 years old and is seen for screening. The patient has no family history of breast cancer. The patient has no personal history of cancer. The patient has a history of Excisional Biopsy at age 36 - benign. VIEWS: The views performed were: bilateral craniocaudal with tomosynthesis and bilateral mediolateral oblique with tomosynthesis. FILMS COMPARED: The present examination has been compared to prior imaging studies performed at [facility] on 11/05/2015, 11/08/2016, 12/06/2017 and 04/09/2018. This study has been interpreted with the assistance of computer-aided detection. MAMMOGRAM FINDINGS: The breasts are almost entirely fat. There are no suspicious masses, suspicious calcifications, or new areas of architectural distortion. IMPRESSION: THERE IS NO MAMMOGRAPHIC EVIDENCE OF MALIGNANCY. A ROUTINE FOLLOW-UP MAMMOGRAM IN 1 YEAR IS RECOMMENDED. THE RESULTS OF THIS EXAM WERE SENT TO THE PATIENT. ACR BI-RADS Category 1 - Negative MAMMOGRAPHY NOTE: 1. A negative mammogram report should not delay a biopsy if a dominant of clinically suspicious mass is present. 2. Approximately 10% to 15% of breast cancers are not detected by mammography. 3. Adenosis and dense breasts may obscure an underlying neoplasm. Reported by: Jerri ANGUIANO Electonically Signed: [id number]
== END 2019-08-11 10:03 | disposition home or self-care (01) ==
LOC: BICMAMMO 10:02
PROVIDERS: ATTEND Internal Medicine
DX: Z12.31 Encounter for screening mammogram for malignant neoplasm of breast (principal); Z13.820 Encounter for screening for osteoporosis; M81.0 Age-related osteoporosis without current pathological fracture; Z78.0 Asymptomatic menopausal state; Z91.89 Other specified personal risk factors, not elsewhere classified
CPT/HCPCS: 77063; 77067; 77080

== ENCOUNTER 2020-07-14 15:10 | Outpatient (CLI) | payer MEDICARE ==
--- NOTE | 2020-07-14 15:36 | RAD ---
EXAM: Two views chest PROVIDED CLINICAL HISTORY: Dyspnea COMPARISON: 04/12/2020 FINDINGS: Cardiac silhouette is at the upper limits normal in size. Pulmonary vasculature is within normal limi ts. No consolidation or pleural fluid is identified. Linear density is present at the right lung base likely related to volume loss. There is improved aeration of the lungs compared to prior exam. N asogastric tube is no longer visualized. Vascular calcifications are again seen in a tortuous thoracic aorta. Left convex scoliosis thoracic spine is again present with degenerative changes in th e spine. Bilateral glenohumeral osteoarthropathy is present with narrowing of the subacromial spaces likely related to chronic bilateral rotator cuff tears. IMPRESSION: No acute cardiopulmonary process.
== END 2020-07-14 15:11 | disposition home or self-care (01) ==
LOC: BICRAD 15:10
PROVIDERS: ATTEND Internal Medicine Critical Care Medicine
DX: R06.00 Dyspnea, unspecified (principal)
CPT/HCPCS: 71046

== ENCOUNTER 2020-10-21 13:23 | Outpatient (CLI) | payer MEDICARE | END 2020-10-21 13:24 | disposition home or self-care (01) | LOC: BICRAD 13:23 | PROVIDERS: ATTEND Internal Medicine Critical Care Medicine | DX: R06.00 Dyspnea, unspecified (principal) | CPT/HCPCS: 71046 ==